=== PATIENT | female | born 1990 ===

== ENCOUNTER → 2020-06-07 10:18 | Outpatient (BNVA) | payer OTHER, SELFPAY | PROVIDERS: PCP Internal Medicine; Referring Provider Internal Medicine; Visit Provider Advanced Practice Midwife | DX: N92.6 Irregular menstruation, unspecified (principal) | CPT/HCPCS: 99213; Q3014 ==

== ENCOUNTER 2020-06-18 18:02 | Outpatient (REF) | payer OTHER, SELFPAY | END 2020-06-18 18:03 | disposition home or self-care (01) | LOC: HO.LNP 18:02 | PROVIDERS: Visit Provider Hospitalist | DX: Z20.828 Contact with and (suspected) exposure to other viral communicable diseases (principal) | CPT/HCPCS: 87635 ==

== ENCOUNTER → 2020-08-31 13:58 | Outpatient (BNVA) | payer OTHER, SELFPAY | PROVIDERS: PCP Internal Medicine; Visit Provider Obstetrics & Gynecology | DX: Z76.89 Persons encountering health services in other specified circumstances (principal) ==

== ENCOUNTER 2021-02-12 08:21 | Outpatient (REF) | payer OTHER, SELFPAY ==
[2021-02-12 11:21] LABS: MANUAL DIFF FLAG NO
[2021-02-12 11:23] LABS: Basophils Absolute Auto 0.1 X10*3/uL (0.0-0.2); Basophils Percent Auto 1.2 % (0-2); Eosinophils Percent Auto 0.7 % (0-4); Hematocrit 36.3 % (37-47); Hemoglobin 12.8 g/dl (12.0-16.0); Imm Gran Abs Auto 0.01 X10*3/uL (0.00-0.03); Imm Gran Pct Auto 0.2 % (0.0-0.4); Lymphocytes Absolute Auto 1.5 X10*3/uL (1.2-4.9); Lymphocytes Percent Auto 37.3 % (20-40); Mean Corpuscular HGB Conc 35.3 g/dl (31.0-35.0); Mean Corpuscular Hemoglobin 29.8 pg (27.0-33.0); Mean Corpuscular Volume 84.6 fL (80-98); Mean Platelet Volume 11.7 fL (9.4-12.3); Monocytes Absolute Auto 0.5 X10*3/uL (0.1-1.2); Monocytes Percent Auto 11.1 % (2-11); Neutrophils Percent Auto 49.5 % (45-73); Platelet Count 238 X10*3/uL (160-400); Red Blood Count 4.29 X10*6/uL (4.20-5.50); Red Cell Distribution Width 13.3 % (11.0-16.0); White Blood Count 4.1 X10*3/uL (4.8-10.8)
[2021-02-12 11:36] LABS: Alanine Aminotransferase 22 U/L (0-31); Albumin Level 4.3 g/dL (3.5-5.0); Alkaline Phosphatase 57 U/L (39-117); Anion Gap 13 (12-20); Aspartate Amino Transferase 23 U/L (5-31); Bilirubin Total 1.5 mg/dL (0.0-1.0); Blood Urea Nitrogen 13 mg/dL (9-16); Calcium 9.1 mg/dL (8.4-10.2); Carbon Dioxide 24 mmol/L (22-29); Chloride 103 mmol/L (96-108); Estimated Glomerular Filt Rate > 60; Glucose Fasting 72 mg/dL (60-99); Potassium 4.2 mmol/L (3.3-5.1); Sodium 136 mmol/L (135-145); Total Protein 6.8 g/dL (6.5-8.0)
[2021-02-12 11:57] LABS: TSH reflex Free T4 1.22 uIU/mL (0.32-4.0)
[2021-02-12 14:16] LABS: Monotest Negative (Negative)
[2021-02-14 17:06] LABS: Lyme Abs Screen <0.90 index
== END 2021-02-12 08:22 | disposition home or self-care (01) ==
LOC: HO.HMGCLDS 08:21
PROVIDERS: PCP Internal Medicine; Visit Provider Hospitalist
DX: Z01.84 Encounter for antibody response examination (principal); R53.83 Other fatigue
CPT/HCPCS: 36415; 80053; 84443; 85025; 86308; 86617; 86618

== ENCOUNTER 2021-02-25 11:24 | Outpatient (REF) | payer OTHER, SELFPAY ==
[2021-02-26 13:22] LABS: Rubella IgG Antibody 3.91 Index
[2021-02-28 03:34] LABS: HBS Num1 67.91 mIU/mL (0-7.99); ~Hepatitis B Surface Antibody REACTIVE (Nonreactive)
== END 2021-02-25 11:25 | disposition home or self-care (01) ==
LOC: HO.HMGCLDS 11:24
PROVIDERS: PCP Internal Medicine; Visit Provider Internal Medicine
DX: Z02.0 Encounter for examination for admission to educational institution (principal)
CPT/HCPCS: 36415; 86706; 86735; 86762; 86765; 86787

== ENCOUNTER → 2021-10-13 10:01 | Outpatient (BNVA) | payer OTHER, SELFPAY | PROVIDERS: PCP Internal Medicine; Visit Provider Advanced Practice Midwife | DX: Z31.69 Encounter for other general counseling and advice on procreation (principal) ==

== ENCOUNTER 2021-12-27 10:20 | Outpatient (REF) | payer OTHER, SELFPAY ==
[2021-12-27 11:38] LABS: MANUAL DIFF FLAG NO
[2021-12-27 11:50] LABS: Basophils Absolute Auto 0.1 X10*3/uL (0.0-0.2); Basophils Percent Auto 1.1 % (0-2); Eosinophils Absolute Auto 0.1 X10*3/uL (0.0-0.4); Eosinophils Percent Auto 1.1 % (0-4); Hematocrit 31.7 % (37.0-47.0); Hemoglobin 10.6 g/dl (12.0-16.0); Lymphocytes Absolute Auto 1.4 X10*3/uL (1.2-4.9); Lymphocytes Percent Auto 30.8 % (20-40); Mean Corpuscular HGB Conc 33.4 g/dl (31.0-35.0); Mean Corpuscular Hemoglobin 24.6 pg (27.0-33.0); Mean Corpuscular Volume 73.5 fL (80.0-98.0); Mean Platelet Volume 11.9 fL (9.4-12.3); Monocytes Absolute Auto 0.6 X10*3/uL (0.1-1.2); Neutrophils Absolute Auto 2.5 x10*3/uL (2.0-8.3); Platelet Count 287 X10*3/uL (160-400); Red Blood Count 4.31 X10*6/uL (4.20-5.50); Red Cell Distribution Width 16.3 % (11.0-16.0); White Blood Count 4.6 X10*3/uL (4.8-10.8)
[2021-12-27 12:26] LABS: Alanine Aminotransferase 16 U/L (0-31); Albumin Level 4.2 g/dL (3.5-5.0); Alkaline Phosphatase 68 U/L (39-117); Aspartate Amino Transferase 24 U/L (5-31); Bilirubin Total 0.8 mg/dL (0.0-1.0); Blood Urea Nitrogen 13 mg/dL (9-16); Calcium 9.6 mg/dL (8.4-10.2); Estimated Glomerular Filt Rate > 60; Glucose Random 70 mg/dL (60-115); Total Protein 7.1 g/dL (6.5-8.0)
[2021-12-27 12:32] LABS: TSH reflex Free T4 1.05 uIU/mL (0.32-4.0)
[2021-12-27 12:47] LABS: Anion Gap 8 (12-20); Carbon Dioxide 29 mmol/L (22-29); Chloride 106 mmol/L (96-108); Potassium 4.2 mmol/L (3.3-5.1); Sodium 139 mmol/L (135-145)
[2021-12-27 12:52] LABS: Folate 9.9 ng/mL (> or = 4.0); Vitamin B12 510 pg/mL (200-900)
[2021-12-31 13:36] LABS: Vitamin D 25-OH, D2 <4 ng/mL; Vitamin D 25-OH, D3 28 ng/mL; Vitamin D 25-OH, Total 28 ng/mL (30-100)
== END 2021-12-27 10:21 | disposition home or self-care (01) ==
LOC: HO.HMGCLDS 10:20
PROVIDERS: PCP Internal Medicine; Visit Provider Nurse Practitioner Acute Care
DX: R42 Dizziness and giddiness (principal)
CPT/HCPCS: 36415; 80053; 82306; 82607; 82746; 84443; 85025

== ENCOUNTER → 2022-01-09 15:31 | Outpatient (BNV) | payer OTHER, SELFPAY | PROVIDERS: PCP Internal Medicine; Visit Provider Internal Medicine Medical Oncology | DX: D50.9 Iron deficiency anemia, unspecified (principal); E55.9 Vitamin D deficiency, unspecified | CPT/HCPCS: 99203; 99213 ==

== ENCOUNTER 2022-04-19 08:35 | Outpatient (REF) | payer OTHER, SELFPAY ==
[2022-04-19 11:35] LABS: MANUAL DIFF FLAG NO
[2022-04-19 11:46] LABS: Basophils Percent Auto 0.8 % (0-2); Eosinophils Absolute Auto 0.1 X10*3/uL (0.0-0.4); Eosinophils Percent Auto 1.7 % (0-4); Hematocrit 36.5 % (37.0-47.0); Hemoglobin 13.1 g/dl (12.0-16.0); Imm Gran Abs Auto 0.01 X10*3/uL (0.00-0.03); Imm Gran Pct Auto 0.2 % (0.0-0.4); Lymphocytes Absolute Auto 1.4 X10*3/uL (1.2-4.9); Lymphocytes Percent Auto 29.7 % (20-40); Mean Corpuscular HGB Conc 35.9 g/dl (31.0-35.0); Mean Corpuscular Hemoglobin 30.2 pg (27.0-33.0); Mean Corpuscular Volume 84.1 fL (80.0-98.0); Mean Platelet Volume 11.5 fL (9.4-12.3); Monocytes Absolute Auto 0.6 X10*3/uL (0.1-1.2); Monocytes Percent Auto 11.7 % (2-11); Neutrophils Absolute Auto 2.6 x10*3/uL (2.0-8.3); Neutrophils Percent Auto 55.9 % (45-73); Platelet Count 229 X10*3/uL (160-400); Red Blood Count 4.34 X10*6/uL (4.20-5.50); Red Cell Distribution Width 14.2 % (11.0-16.0); White Blood Count 4.7 X10*3/uL (4.8-10.8)
[2022-04-19 12:12] LABS: TSH reflex Free T4 1.13 uIU/mL (0.32-4.0); Vitamin D 25-OH Total 30.1 ng/mL (>30)
[2022-04-19 12:15] LABS: Ferritin 26 ng/mL (10-122)
[2022-04-19 12:17] LABS: Alanine Aminotransferase 21 U/L (0-31); Albumin Level 4.1 g/dL (3.5-5.0); Alkaline Phosphatase 54 U/L (39-117); Anion Gap 11 (12-20); Aspartate Amino Transferase 19 U/L (5-31); Bilirubin Total 0.9 mg/dL (0.0-1.0); Blood Urea Nitrogen 20 mg/dL (9-16); Calcium 8.8 mg/dL (8.4-10.2); Carbon Dioxide 26 mmol/L (22-29); Chloride 105 mmol/L (96-108); Cholesterol 177 mg/dL; Estimated Glomerular Filt Rate > 60; Glucose Fasting 78 mg/dL (60-99); HDL Cholesterol 69 mg/dL; LDL Cholesterol Calculated 99 mg/dl; Potassium 3.9 mmol/L (3.3-5.1); Sodium 138 mmol/L (135-145); Total Protein 6.7 g/dL (6.5-8.0); Triglycerides 46 mg/dL
== END 2022-04-19 08:36 | disposition home or self-care (01) ==
LOC: HO.HMGCLDS 08:35
PROVIDERS: Absent Provider Internal Medicine; PCP Internal Medicine; Visit Provider Internal Medicine Medical Oncology
DX: Z00.00 Encounter for general adult medical examination without abnormal findings (principal); D50.9 Iron deficiency anemia, unspecified; Z83.49 Family history of other endocrine, nutritional and metabolic diseases
CPT/HCPCS: 36415; 80053; 80061; 82306; 82728; 84443; 85025

== ENCOUNTER 2022-05-15 14:34 | Outpatient (REF) | payer OTHER, SELFPAY ==
--- NOTE | ~2022-05-15 | US_ITS ---
EXAMINATION: US PELVIS CLINICAL INFORMATION: Abdominal pain. COMPARISON: Pelvic ultrasound dated 02/26/2020 TECHNIQUE: Ultrasound of the pelvis is performed using both transabdominal and transvaginal transducers along with Doppler. Transvaginal imaging is performed due to inadequate visualization transabdominally. FINDINGS: Uterus: The uterus is anteverted and measures 9.6 x 5.5 x 6.4 cm. A Nabothian cyst is seen within the cervix. The double wall endometrial thickness is 1.7 mm. The endometrial stripe is heterogeneous in echotexture. The uterus is smooth in contour and has normal myometrial echogenicity. FIBROIDS: There are 2 fibroids seen. 1. Location: Posterior fundus, myometrial. Size: 0.8 x 0.7 x 0.7 cm. Fibroid characteristics: Hypoechoic. 2. Location: Posterior body, myometrial. Size: 2.8 x 3.0 x 2.5 cm. Fibroid characteristics: Hypoechoic. Adnexa: Both ovaries are visualized. There is normal color flow to the adnexa. There is no ovarian torsion. There is no pelvic ascites or fluid collection. Right ovary measures 3.4 x 3.3 x 3.1 cm (volume 17.9 mL). The right ovary contains a 1.7 x 1.6 x 1.8 cm hemorrhagic cyst, with characteristic internal reticulated contents. Left ovary measures 3.1 x 2.8 x 3.0 cm (volume 13.6 mL). There is prominent left adnexal vasculature. US/US pelvic and transvaginal IMPRESSION: 1. There is borderline thickening of the endometrial stripe. Recommend Gynecology evaluation and management, consideration for follow-up pelvic ultrasound imaging and/or tissue sampling, if clinically indicated. 2. Uterine fibroids are noted, as detailed. 3. A Nabothian cyst is seen within the cervix. 4. There is prominent left adnexal vasculature, which can be assessed with pelvic congestion. 5. A 1.8 cm right ovarian hemorrhagic cyst is incidentally noted.
== END 2022-05-15 14:35 | disposition home or self-care (01) ==
LOC: HO.HMGCX 14:34
PROVIDERS: Visit Provider Family Medicine
DX: R10.9 Unspecified abdominal pain (principal)
CPT/HCPCS: 76830; 76856

== ENCOUNTER 2022-10-18 09:23 | Outpatient (REF) | payer OTHER, SELFPAY ==
[2022-10-18 10:24] LABS: MANUAL DIFF FLAG NO
[2022-10-18 10:53] LABS: Basophils Percent Auto 0.6 % (0-2); Eosinophils Percent Auto 0.6 % (0-4); Hematocrit 37.8 % (37.0-47.0); Hemoglobin 13.4 g/dl (12.0-16.0); Imm Gran Abs Auto 0.02 X10*3/uL (0.00-0.03); Imm Gran Pct Auto 0.3 % (0.0-0.4); Lymphocytes Absolute Auto 1.4 X10*3/uL (1.2-4.9); Lymphocytes Percent Auto 21.1 % (20-40); Mean Corpuscular HGB Conc 35.4 g/dl (31.0-35.0); Mean Corpuscular Hemoglobin 29.4 pg (27.0-33.0); Mean Corpuscular Volume 82.9 fL (80.0-98.0); Mean Platelet Volume 10.8 fL (9.4-12.3); Monocytes Absolute Auto 0.7 X10*3/uL (0.1-1.2); Monocytes Percent Auto 10.9 % (2-11); Neutrophils Absolute Auto 4.5 x10*3/uL (2.0-8.3); Neutrophils Percent Auto 66.5 % (45-73); Platelet Count 245 X10*3/uL (160-400); Red Blood Count 4.56 X10*6/uL (4.20-5.50); Red Cell Distribution Width 14.4 % (11.0-16.0); White Blood Count 6.7 X10*3/uL (4.8-10.8)
[2022-10-18 11:26] LABS: Alanine Aminotransferase 29 U/L (0-31); Albumin Level 4.1 g/dL (3.5-5.0); Alkaline Phosphatase 68 U/L (39-117); Anion Gap 13 (12-20); Aspartate Amino Transferase 26 U/L (5-31); Bilirubin Total 1.2 mg/dL (0.0-1.0); Blood Urea Nitrogen 21 mg/dL (9-16); Calcium 9.6 mg/dL (8.4-10.2); Carbon Dioxide 25 mmol/L (22-29); Chloride 106 mmol/L (96-108); Estimated Glomerular Filt Rate > 60; Glucose Random 78 mg/dL (60-115); Magnesium 1.9 mg/dL (1.6-2.6); Potassium 4.2 mmol/L (3.3-5.1); Sodium 140 mmol/L (135-145); Total Protein 6.6 g/dL (6.5-8.0)
[2022-10-18 11:35] LABS: Ferritin 23 ng/mL (10-122)
[2022-10-18 11:39] LABS: HIV AB/AG Nonreactive (Nonreactive); HIV Num 1 0.07 S/CO (0.00-0.99); Hepatitis B Core Antibody Nonreactive (Nonreactive); ~HepC Num1 0.11 S/CO (0.00-0.79); ~Hepatitis C Antibody Nonreactive (Nonreactive)
[2022-10-18 12:01] LABS: Folate 10.3 ng/mL (> or = 4.0); Vitamin B12 611 pg/mL (200-900); Vitamin D 25-OH Total 24.2 ng/mL (>30)
[2022-10-18 12:18] LABS: CT PCR NOT DETECTED (Not Detect.); NG PCR NOT DETECTED (Not Detect.)
== END 2022-10-18 09:24 | disposition home or self-care (01) ==
LOC: HO.LNP 09:23
PROVIDERS: Internal Medicine Medical Oncology; PCP Internal Medicine; Visit Provider Advanced Practice Midwife
DX: Z00.01 Encounter for general adult medical examination with abnormal findings (principal); Z11.3 Encounter for screening for infections with a predominantly sexual mode of transmission; Z11.4 Encounter for screening for human immunodeficiency virus [HIV]; Z20.2 Contact with and (suspected) exposure to infections with a predominantly sexual mode of transmission; D50.9 Iron deficiency anemia, unspecified; E55.9 Vitamin D deficiency, unspecified
CPT/HCPCS: 0353U; 80053; 82306; 82607; 82728; 82746; 83735; 85025; 86704; 86803; 87389

== ENCOUNTER 2023-03-28 08:55 | Outpatient (REF) | payer OTHER, SELFPAY ==
[2023-03-28 12:01] LABS: Cholesterol 187 mg/dL; HDL Cholesterol 71 mg/dL; LDL Cholesterol Calculated 103 mg/dl; Triglycerides 69 mg/dL
== END 2023-03-28 08:56 | disposition home or self-care (01) ==
LOC: HO.HMGCLDS 08:55
PROVIDERS: Absent Provider Internal Medicine Medical Oncology; PCP Internal Medicine; Visit Provider Internal Medicine
DX: Z00.01 Encounter for general adult medical examination with abnormal findings (principal); D50.9 Iron deficiency anemia, unspecified; E55.9 Vitamin D deficiency, unspecified
CPT/HCPCS: 36415; 80061

== ENCOUNTER 2023-04-04 12:57 | Outpatient (AMB) | payer OTHER, SELFPAY ==
[2023-04-04 13:01] VITALS: BP 122/70; PULSE 71; TEMP 36.3; O2SAT 100
--- NOTE | 2023-04-04 13:01 | AM.OFFWIN_ITS ---
Intake Vital Signs 04/04/23 13:01 Height 5 ft 4 in BP 122/70 Blood Pressure Location Lt brachial Position Sitting Pulse 71 Pulse Source Pulse Oximeter Temp 97.3 F Temp Source Temporal Artery Scan Pulse Oximetry (%) 100 Oxygen Delivery Method Room Air Intake Visit Reasons: EST/low iron? headaches Intake Note: Pt is here c/o on going headaches, dizziness and feeling weak. Patient Tobacco Use Status: Never used Tobacco Allergies No Known Allergies Allergy (Verified 04/04/23 13:01) Do you need a note to return to daycare/school/sports/work: No HPI HPI Comments History of Present Illness Details 1310 33-year-old female presenting for sick visit, complaining of fatigue, malaise, headache, lightheadedness, weakness, going on for the past few days worsening. Patient tells me that she has a history of iron deficiency anemia, he seek medications for however has not taken them for a while. Patient reports she is currently on her period, she typically has been having heavy periods, she feels as though her anemia as back. She tells me this is how she feels when her blood counts are low. Her headache is diffuse in nature however worse at the right side, no visual disturbances. Patient tells me she feels lightheaded, no dizziness with room spinning. No head trauma. NIH stroke scale 0 on arrival. Patient denies fevers, chills, chest pain, shortness of breath, nausea, vomiting, abdominal pain. Physical exam benign This is likely iron deficiency anemia on acute blood loss anemia secondary to heavy menses. Unlikely stroke, posterior stroke. Will rule out metabolic derangements. Unlikely orthostatic hypotension Will obtain labs, and call patient as needed. Advised her to follow-up with PCP and drink plenty of fluids. Educated patient on diagnosis and treatment plan, answered all question, patient verbalizes understanding. At this time patient will be discharged home, advised to return with new or worsening symptoms. Educated on worrisome signs and symptoms and when to return. At this time I feel comfortable discharge home. [facility] Medical History Acne vulgaris Irregular menstrual bleeding Surgical History Hx of section Family History Father Hx of diabetes mellitus Sister Diabetes mellitus Hypothyroidism Paternal Aunt Cancer Other No family history of breast cancer Social History Household Members: Children Housing: House Are you a primary urgent care technician to a significant other at home: No Do you presently have visiting nurse or other home services: No Alcohol intake: current Alcohol intake frequency: a few times a month Patient Tobacco Use Status: Never used Tobacco e-Cigarette/Vaping Use: Never Used service: No Current occupational status: employed Sexual orientation: Straight/Heterosexual Gender identity: Female Cognitive needs: No Hearing needs: No Vision needs: No Female Reproductive History Menstrual Age of Menarche: 10 Review of Systems Const Details: Constitutional : No Weight loss, No Fever, No Chills, + Fatigue, + Malaise ENT/Mouth : No sore throat, No Rhinorrhea Eyes: No Eye Pain, No Swelling, No Redness Cardiovascular : No Chest Pain, No SOB, No Dyspnea on Exertion, No Orthopnea, No Edema, No Palpitations Respiratory : No Cough, No Sputum, No Wheezing Gastrointestinal : No Nausea, No Vomiting, No Diarrhea, No Constipation, No abdominal Pain, No Hematochezia, No Melena Genitourinary : No Dysuria, No Urinary Frequency, No Hematuria, Musculoskeletal : No joint pain, No Myalgias, No Joint Swelling Skin : No Skin Lesions, No rash Neuro : No Weakness, No Numbness, + Dizziness, + Headache Psych : No Anxiety/Panic, No Depression All other systems reviewed and are negative All systems reviewed & are unremarkable except as noted in HPI and below Physical Exam Vital Signs: Last Vital Signs Temp 97.3 F 04/04/23 13:01 Pulse 71 04/04/23 13:01 BP 122/70 04/04/23 13:01 Pulse Ox 100 04/04/23 13:01 Oxygen Delivery Method Room Air 04/04/23 13:01 vss Appearance: Alert.? Oriented X3.? No acute distress.? Head: Normocephalic, atraumatic, no step-offs or deformities Eyes: Pupils equal, round and reactive to light.? Extraocular movements intact pain-free CVS: Normal heart rate and rhythm.? Pulses normal.? Respiratory: No respiratory distress.? Breath sounds normal.? Abdomen: Soft and nontender.? Skin: Skin warm and dry.? Normal skin color.? Normal skin turgor.? Extremities: No lower extremity edema.? No calf ttp. 5/5 strength to bilateral upper and lower extremities Back: No midline tenderness, no C-spine tenderness, full range of motion, no CVA tenderness bilaterally Neuro: Oriented X 3.? No motor deficit.? No sensory deficit. CN 2-12 intact . Normal [id number], vgox-kg-rdgi, steady tandem gait normal coordination. 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 NIH stroke scale 0 Assessment & Plan Assessment & Plan (1) Headache: Code(s): R51.9 - Headache, unspecified (2) Dizziness: Code(s): R42 - Dizziness and giddiness (3) Anemia: Code(s): D64.9 - Anemia, unspecified Plan Take your medications as prescribed. If you were prescribed antibiotics today, it is important that you take your medication to their entirety, do not skip any doses, do not finish them early. Follow-up with your primary care provider this week. Return to the emergency department with new or worsening symptoms. Such as fevers, chills, chest pain, shortness of breath, nausea, vomiting, dizziness, headache, vision changes, lethargy In case of emergency call 911 Orders: Orders Comprehensive Met. Panel Today D50.9 - Iron deficiency anemia, unspecified IRON PROFILE Today D50.9 - Iron deficiency anemia, unspecified Complete Blood Count Auto Diff Today N93.9 - Abnormal uterine and vaginal bleeding, unspecified HCG Quantitative Today R51.9 - Headache, unspecified Medications: New ferrous sulfate 325 mg PO Q OTHER DAY 30 tabs 0RF D50.9 - Iron deficiency anemia, unspecified Coding Level of Care Code Est Pt Level 3 (22383) Diagnoses Headache R51.9 Dizziness R42 Anemia D64.9
== END 2023-04-04 13:51 | disposition home or self-care (01) ==
PROVIDERS: PCP Internal Medicine; Visit Provider Physician Assistant
DX: R51.9 Headache, unspecified (principal); R42 Dizziness and giddiness; D64.9 Anemia, unspecified
CPT/HCPCS: 99213

== ENCOUNTER 2023-04-04 13:07 | Outpatient (REF) | payer OTHER, SELFPAY ==
[2023-04-04 16:10] LABS: MANUAL DIFF FLAG NO
[2023-04-04 16:14] LABS: Basophils Percent Auto 0.8 % (0-2); Eosinophils Absolute Auto 0.1 X10*3/uL (0.0-0.4); Eosinophils Percent Auto 1.1 % (0-4); Hematocrit 34.7 % (37.0-47.0); Hemoglobin 12.1 g/dl (12.0-16.0); Imm Gran Abs Auto 0.01 X10*3/uL (0.00-0.03); Imm Gran Pct Auto 0.2 % (0.0-0.4); Lymphocytes Absolute Auto 2.3 X10*3/uL (1.2-4.9); Lymphocytes Percent Auto 34.2 % (20-40); Mean Corpuscular HGB Conc 34.9 g/dl (31.0-35.0); Mean Corpuscular Hemoglobin 28.6 pg (27.0-33.0); Monocytes Absolute Auto 0.7 X10*3/uL (0.1-1.2); Neutrophils Absolute Auto 3.5 x10*3/uL (2.0-8.3); Neutrophils Percent Auto 52.7 % (45-73); Platelet Count 263 X10*3/uL (160-400); Red Blood Count 4.23 X10*6/uL (4.20-5.50); Red Cell Distribution Width 14.7 % (11.0-16.0); White Blood Count 6.6 X10*3/uL (4.8-10.8)
[2023-04-04 16:15] LABS: Basophils Absolute Auto 0.1 X10*3/uL (0.0-0.2)
[2023-04-04 16:39] LABS: Alanine Aminotransferase 20 U/L (0-31); Albumin Level 4.1 g/dL (3.5-5.0); Alkaline Phosphatase 61 U/L (39-117); Anion Gap 13 (12-20); Aspartate Amino Transferase 21 U/L (5-31); Bilirubin Total 0.6 mg/dL (0.0-1.0); Blood Urea Nitrogen 17 mg/dL (9-16); Calcium 9.4 mg/dL (8.4-10.2); Carbon Dioxide 23 mmol/L (22-29); Chloride 107 mmol/L (96-108); Estimated Glomerular Filt Rate > 60; Glucose Random 75 mg/dL (60-115); HCG Quantitative < 2 mIU/mL; Iron 37 mcg/dL (30-160); Percent Iron Saturation 12 % (15-50); Potassium 4.1 mmol/L (3.3-5.1); Sodium 139 mmol/L (135-145); Total Iron Binding Capacity 319 mcg/dL (228-428); Total Protein 6.9 g/dL (6.5-8.0); Unsaturated Iron Binding 282 ug/dL
== END 2023-04-04 13:08 | disposition home or self-care (01) ==
LOC: HO.HMGCLDS 13:07
PROVIDERS: PCP Internal Medicine; Visit Provider Physician Assistant
DX: N93.9 Abnormal uterine and vaginal bleeding, unspecified (principal); D50.9 Iron deficiency anemia, unspecified; R51.9 Headache, unspecified
CPT/HCPCS: 36415; 80053; 83540; 84702; 85025

== ENCOUNTER 2023-04-12 10:57 | Outpatient (AMB) | payer OTHER, SELFPAY ==
--- NOTE | 2023-04-12 11:30 | MHC.PC.OV ---
Vital Signs 04/12/23 11:31 Height 5 ft 4 in Weight 142 lb BMI 24.4 BP 112/80 Blood Pressure Location Lt brachial Position Sitting Pulse 75 Pulse Source Pulse Oximeter Pulse Oximetry (%) 98 Oxygen Delivery Method Room Air Intake Visit Reasons: Weakness and breathing problems Intake Note: Pt is here today c/o weakness and breathing problems x1wk and fatigue Allergies No Known Allergies Allergy (Verified 04/12/23 11:42) Medication List - Last Reconciled 04/12/23 by Silvia Kiran MD ferrous sulfate 325 mg PO Q OTHER DAY Tobacco use date assessed: 04/12/23 Dental Screening Dental Screen Date: 04/12/23 Did you have a dental visit in the last 12 months?: Yes Did you have a dental problem in the last 6 months where you did not have access to dental care?: No Was dental information given to patient?: Patient has dentist HPI Weakness and breathing problems HPI Details 33-year-old lady here today complaining of generalized weakness and problems with breathing especially with exertion. She had recent labs done which showed no anemia no evidence of infection, normal electrolytes, random blood sugar, vitamin B12, lipid, liver enzymes renal function are all within normal limits. She however has been noted to have low vitamin-D when it was checked in October of 2022. [facility] Medical History Acne vulgaris Irregular menstrual bleeding Surgical History Hx of section Family History Father Hx of diabetes mellitus Sister Diabetes mellitus Hypothyroidism Paternal Aunt Cancer Other No family history of breast cancer Social History Household Members: Children Housing: House Are you a primary patient care nursing assistant to a significant other at home: No Do you presently have visiting nurse or other home services: No Alcohol intake: current Alcohol intake frequency: a few times a month Patient Tobacco Use Status: Never used Tobacco e-Cigarette/Vaping Use: Never Used service: No Current occupational status: employed Sexual orientation: Straight/Heterosexual Gender identity: Female Cognitive needs: No Hearing needs: No Vision needs: No Female Reproductive History Menstrual Age of Menarche: 10 Questionnaire PHQ-9 Over the last 2 weeks, how often have you been bothered by any of the following problems? Depression Screening Interpretation: Negative Source: Developed by Drs. Tay Loyola, Vashti Mccracken, Johny Friedman and colleagues, with an educational castillo from [employer]. Thrive Questionnaire Date Thrive assessed: 09/12/22 [place]FR[place]-7 AMB Questionnaire AFRICA-7 Date [place]FRICA - 7 assessed: 09/12/22 Source: Developed by Drs. Tay Loyola, Vashti Mcrcacken, Johny Friedman and colleagues, with an educational castillo from [employer]. Review of Systems Const Denies fever(s), Denies headache(s) and Denies weakness Eyes Denies change in vision ENT Denies dizziness, Denies headache(s), Denies nasal congestion, Denies nasal discharge and Denies sore throat Card Denies chest pain, Denies lightheadedness, Denies palpitations and Denies dyspnea Resp Denies chest congestion, Denies cough, Denies dyspnea and Denies wheezing GI Denies abdominal pain, Denies change in bowel habits and Denies heartburn Denies hematuria, Denies urinary frequency, Denies dysuria and Denies urinary urgency Musc Reports no additional complaints Neuro Denies dizziness, Denies headache(s) and Denies weakness Psych Reports no additional complaints Endo Denies polydipsia, Denies polyuria and Denies palpitations Kenn/Lymph Denies easy bruising Aller/Immun Denies seasonal rhinorrhea and Denies wheezing Physical exam (Primary Care) Vital Signs: Last Vital Signs Pulse 75 04/12/23 11:31 BP 112/80 04/12/23 11:31 Pulse Ox 98 04/12/23 11:31 Oxygen Delivery Method Room Air 04/12/23 11:31 BMI result Body Mass Index 24.4 Tobacco/Smoking Status: Tobacco use Status Tobacco use date assessed 04/12/23 04/12/23 11:36 Patient Tobacco Use Status Never used Tobacco 04/12/23 11:36 e-Cigarette/Vaping Use Never Used 04/12/23 11:36 Depression Screening Interpretation: Negative Thrive Assessment: Date of Thrive Assessment Date Thrive assessed 09/12/22 04/12/23 11:36 Const General: no acute distress and alert Orientation/consciousness: patient oriented x3 HENMT Head: Yes normocephalic and Yes atraumatic Ears: hearing grossly normal bilaterally, external ears normal and TM normal on the right General nose exam: Normal external nose present Neck Other: Thyroid nonpalpable Neck: Yes full ROM, Yes no lymphadenopathy and Yes supple Resp Auscultation: clear to auscultation bilaterally Cardio Other: S1-S2 present regular rate and rhythm GI Palpation (GI): Soft to palpation, nontender and no guarding Neuro General: patient oriented x3, gait normal, tone normal, moves all extremities, Normal light touch and pain sensation and no focal motor deficits Extrem General: Yes normal to inspection, Yes full ROM, Yes no joint enlargement, Yes no clubbing, cyanosis or edema, Yes no calf tenderness and Yes normal gait Results Reviewed Results Reviewed: SPEC : [id number] RON: 04/04/23 STATUS: COMP REQ : [id number] RECD: 04/04/[address]: Sachi Patel COMP: 04/04/23 ENTERED: 04/04/[address]: Silvia Kiran MD ORDERED: CBC Auto Diff Test Result Flag Reference Site WBC 6.6 4.8-10.8 X10*3/uL RBC 4.23 4.20-5.50 X10*6/uL HGB 12.1 12.0-16.0 g/dl HCT 34.7 L 37.0-47.0 % MCV 82.0 80.0-98.0 fL MCH 28.6 27.0-33.0 pg MCHC 34.9 31.0-35.0 g/dl RDW 14.7 11.0-16.0 % PLT 263 160-400 X10*3/uL MPV 12.0 9.4-12.3 fL Neut Pct Auto 52.7 45-73 % ImGran Pct Auto 0.2 0.0-0.4 % Lymp Pct Auto 34.2 20-40 % [place] Pct Auto 11.0 2-11 % Eos Pct Auto 1.1 0-4 % Baso Pct Auto 0.8 0-2 % NRBC Pct Auto 0.0 0.0-0.2 /100WBC ANC Neut Abs # 3.5 2.0-8.3 x10*3/uL ImGran Abs Auto 0.01 0.00-0.03 X10*3/uL Lymph Abs Auto 2.3 1.2-4.9 X10*3/uL [place] Abs Auto 0.7 0.1-1.2 X10*3/uL Eos Abs Auto 0.1 0.0-0.4 X10*3/uL Baso Abs Auto 0.1 0.0-0.2 X10*3/uL NRBC Abs Auto 0.000 0.0-0.012 X10*3/uL SPEC : [id number] RON: 04/04/23 STATUS: COMP REQ : [id number] RECD: 04/04/[address]: Sachi Patel COMP: 04/04/23 ENTERED: 04/04/[address]: Silvia Kiran MD ORDERED: CMP, IRON PROF, HCG Quant Test Result Flag Reference Site Sodium 139 135-145 mmol/L Potassium 4.1 3.3-5.1 mmol/L CL 107 96-108 mmol/L CO2 23 22-29 mmol/L Gap 13 12-20 BUN 17 H 9-16 mg/dL Creat 0.77 0.5-1.4 mg/dL EGFR > 60 NOTE: For -[place] individuals, multiply the result by 1.210. Chronic Kidney Disease: Estimated GFR < 60 mL/min/1.73m2 Severe Kidney Disease: Estimated GFR < 15 mL/min/1.73m2 Glucose, Random 75 60-115 mg/dL CA 9.4 8.4-10.2 mg/dL Iron 37 30-160 mcg/dL TIBC 319 228-428 mcg/dL Saturation 12 L 15-50 % UIBC 282 ug/dL Total Bili 0.6 0.0-1.0 mg/dL AST (GOT) 21 5-31 U/L ALT (GPT) 20 0-31 U/L Protein, Total 6.9 6.5-8.0 g/dL Alb 4.1 3.5-5.0 g/dL Alk Phos 61 39-117 U/L HCG Quant < 2 mIU/mL Weeks post LMP Approximate hCG (Last Menstrual Period) Range (mIU/ml) 3 - 4 weeks 9 - 130 4 - 5 weeks 75 - 2,600 5 - 6 weeks 850 - 20,800 6 - 7 weeks 4000 - 100,200 7 - 12 weeks 11,500 - 289,000 12 - 16 weeks 18,300 - 137,000 16 - 29 weeks (2nd trimester) 1,400 - 53,000 29 - 41 weeks (3rd trimester) 940 - 60,000 The Becerra B-hCG assay is used for the early detection of ; it cannot be used to diagnose any condition unrelated to . If a B-hCG level is not supported by the clinical evidence, results should be confirmed by an alternative method (qualitative urine hCG, for example). Laboratory Tests 10/18/22 03/28/23 10:21 Unknown Triglycerides 69 Cholesterol 187 LDL Cholesterol, Calc 103 HDL Cholesterol 71 Vitamin B12 611 25-OH Vitamin D Total 24.2 Assessment and Plan Assessment & Plan (1) Malaise and fatigue: Code(s): R53.81 - Other malaise; R53.83 - Other fatigue Plan: Will check TSH and free T4, vitamin-D in Lyme titer, advised to continue by taking her iron supplements (2) Vitamin D deficiency: Code(s): E55.9 - Vitamin D deficiency, unspecified Plan: Continue taking [id number] vitamin-D 3 2000 units daily, in the meantime will check vitamin-D level Orders: Orders TSH reflex Free T4 04/12/23 R51.9 - Headache, unspecified, R53.81 - Other malaise, R53.83 - Other fatigue Vitamin D 25-OH Total 04/12/23 R51.9 - Headache, unspecified, R53.81 - Other malaise, R53.83 - Other fatigue Lyme IgG/IgM w/reflex to WB 04/12/23 R51.9 - Headache, unspecified, R53.81 - Other malaise, R53.83 - Other fatigue Coding Level of Care Code Est Pt Level 3 (03504) Diagnoses Malaise and fatigue R53.81; R53.83 Vitamin D deficiency E55.9
[2023-04-12 11:31] VITALS: BP 112/80; PULSE 75; O2SAT 98; BMI 24.4
== END 2023-04-12 13:40 | disposition home or self-care (01) ==
PROVIDERS: PCP Internal Medicine; Visit Provider Internal Medicine
DX: R53.81 Other malaise (principal); R53.83 Other fatigue; E55.9 Vitamin D deficiency, unspecified
CPT/HCPCS: 99213

== ENCOUNTER 2023-04-12 11:57 | Outpatient (REF) | payer OTHER, SELFPAY ==
[2023-04-12 16:01] LABS: MANUAL DIFF FLAG NO
[2023-04-12 16:26] LABS: Basophils Absolute Auto 0.1 X10*3/uL (0.0-0.2); Basophils Percent Auto 0.8 % (0-2); Eosinophils Percent Auto 0.6 % (0-4); Hematocrit 35.8 % (37.0-47.0); Hemoglobin 12.4 g/dl (12.0-16.0); Imm Gran Abs Auto 0.02 X10*3/uL (0.00-0.03); Imm Gran Pct Auto 0.3 % (0.0-0.4); Lymphocytes Absolute Auto 1.6 X10*3/uL (1.2-4.9); Mean Corpuscular HGB Conc 34.6 g/dl (31.0-35.0); Mean Corpuscular Hemoglobin 28.4 pg (27.0-33.0); Mean Corpuscular Volume 81.9 fL (80.0-98.0); Mean Platelet Volume 11.4 fL (9.4-12.3); Monocytes Absolute Auto 0.6 X10*3/uL (0.1-1.2); Monocytes Percent Auto 9.1 % (2-11); Neutrophils Absolute Auto 4.2 x10*3/uL (2.0-8.3); Neutrophils Percent Auto 64.2 % (45-73); Platelet Count 264 X10*3/uL (160-400); Red Blood Count 4.37 X10*6/uL (4.20-5.50); Red Cell Distribution Width 15.4 % (11.0-16.0); White Blood Count 6.6 X10*3/uL (4.8-10.8)
[2023-04-12 16:46] LABS: Alanine Aminotransferase 22 U/L (0-31); Alkaline Phosphatase 59 U/L (39-117); Anion Gap 11 (12-20); Aspartate Amino Transferase 21 U/L (5-31); Bilirubin Total 0.9 mg/dL (0.0-1.0); Blood Urea Nitrogen 17 mg/dL (9-16); Calcium 9.7 mg/dL (8.4-10.2); Carbon Dioxide 28 mmol/L (22-29); Chloride 103 mmol/L (96-108); Estimated Glomerular Filt Rate > 60; Glucose Random 76 mg/dL (60-115); Potassium 4.7 mmol/L (3.3-5.1); Sodium 137 mmol/L (135-145); Total Protein 6.9 g/dL (6.5-8.0)
[2023-04-12 17:00] LABS: Ferritin 17 ng/mL (10-122)
[2023-04-12 17:04] LABS: TSH reflex Free T4 0.99 uIU/mL (0.32-4.0); Vitamin D 25-OH Total 29.9 ng/mL (>30)
[2023-04-17 06:28] LABS: Lyme Abs Screen <0.90 index
== END 2023-04-12 11:58 | disposition home or self-care (01) ==
LOC: HO.HMGCLDS 11:57
PROVIDERS: Internal Medicine Medical Oncology; PCP Internal Medicine; Visit Provider Internal Medicine
DX: R51.9 Headache, unspecified (principal); R53.81 Other malaise; R53.83 Other fatigue; D50.9 Iron deficiency anemia, unspecified
CPT/HCPCS: 36415; 80053; 82306; 82728; 84443; 85025; 86617; 86618

== ENCOUNTER 2023-07-04 08:45 | Outpatient (AMB) | payer OTHER, SELFPAY ==
--- NOTE | 2023-07-04 08:55 | MHC.OFFWIV ---
Intake Vital Signs 07/04/23 08:56 Height 5 ft 4 in Weight 143 lb BMI 24.5 BP 130/72 Blood Pressure Location Rt brachial Position Sitting Pulse 67 Pulse Source Pulse Oximeter Temp 98.1 F Temp Source Temporal Artery Scan Pulse Oximetry (%) 98 Oxygen Delivery Method Room Air Intake Visit Reasons: EST/weakness, Low iron? right ear pain(lobby) Intake Note: pt is here for c/o weakness, possible low iron, also right ear pain Patient Tobacco Use Status: Never used Tobacco Allergies No Known Allergies Allergy (Verified 07/04/23 08:58) Medication List - Last Reconciled 07/04/23 by Imelda Carrera MD ferrous sulfate 325 mg PO Q OTHER DAY Do you need a note to return to daycare/school/sports/work: Yes HPI EST/weakness, Low iron? right ear pain(lobby) HPI Details Patient is a 33-year-old female who is working 10 hours 5 days a week and has picked up another shift for the weekend Came in today complaining of feeling tired. She says that she also go to gym 05:00 o'clock in the morning for work out. And sometimes she can not do it. I noticed that she has seen primary care in April for similar problems and had labs done Her kidney functions liver functions are fine Lyme test was negative thyroid test is normal Vitamin-D is slightly low but patient is taking supplement. She is also complaining of left ear pain on examination patient has developed infection I have sent antibiotic for that We talked about her extensive working hours, and why she is feeling tired most likely because she is over worked Patient started weeping when I said that she said that she need to work to pay her bills. She knows that she is overworked. Reassurance provided I would recommend if possible cut down on working hours and sleep more [facility] Medical History Acne vulgaris Irregular menstrual bleeding Surgical History Hx of section Family History Father Hx of diabetes mellitus Sister Diabetes mellitus Hypothyroidism Paternal Aunt Cancer Other No family history of breast cancer Social History Household Members: Children Housing: House Are you a primary urgent care physician assistant to a significant other at home: No Do you presently have visiting nurse or other home services: No Alcohol intake: current Alcohol intake frequency: a few times a month Patient Tobacco Use Status: Never used Tobacco e-Cigarette/Vaping Use: Never Used service: No Current occupational status: employed Sexual orientation: Straight/Heterosexual Gender identity: Female Cognitive needs: No Hearing needs: No Vision needs: No Female Reproductive History Menstrual Age of Menarche: 10 Review of Systems Const All systems reviewed & are unremarkable except as noted in HPI and below Physical Exam Vital Signs: Last Vital Signs Temp 98.1 F 07/04/23 08:56 Pulse 67 07/04/23 08:56 BP 130/72 07/04/23 08:56 Pulse Ox 98 07/04/23 08:56 Oxygen Delivery Method Room Air 07/04/23 08:56 BMI result Body Mass Index 24.5 Const General: no acute distress Orientation/consciousness: patient oriented x3 HEENT Other: Left ear positive erythema tympanic membrane Eyes General: appearance normal, both eyes and all related structures Resp Effort & Inspection: normal respiratory effort and able to speak in complete sentences Auscultation: clear to auscultation bilaterally Cardio Other: S1 S2 Neuro General: patient oriented x3 Psych Mental Status: mental status grossly normal Assessment & Plan Assessment & Plan (1) Otitis media, left: Code(s): H66.92 - Otitis media, unspecified, left ear Qualifiers: Otitis media type: unspecified Qualified Code(s): H66.92 - Otitis media, unspecified, left ear (2) Stressful work schedule: Code(s): Z56.3 - Stressful work schedule (3) Tired: Code(s): R53.83 - Other fatigue (4) Vitamin D deficiency: Code(s): E55.9 - Vitamin D deficiency, unspecified Plan Patient is a 33-year-old female who is working 10 hours 5 days a week and has picked up another shift for the weekend Came in today complaining of feeling tired. She says that she also go to gym 05:00 o'clock in the morning for work out. And sometimes she can not do it. I noticed that she has seen primary care in April for similar problems and had labs done Her kidney functions liver functions are fine Lyme test was negative thyroid test is normal Vitamin-D is slightly low but patient is taking supplement. She is also complaining of left ear pain on examination patient has developed infection I have sent antibiotic for that We talked about her extensive working hours, and why she is feeling tired most likely because she is over worked Patient started weeping when I said that she said that she need to work to pay her bills. She knows that she is overworked. Reassurance provided I would recommend if possible cut down on working hours and sleep more Medications: New amoxicillin 875 mg PO BID 7 days 14 tabs 0RF Coding Level of Care Code Est Pt Level 4 (59073) Diagnoses Left otitis media, unspecified otitis media type H66.92 Otitis media type: unspecified Stressful work schedule Z56.3 Tired R53.83 Vitamin D deficiency E55.9
[2023-07-04 08:56] VITALS: BP 130/72; PULSE 67; TEMP 36.7; O2SAT 98; BMI 24.5
== END 2023-07-04 09:32 | disposition home or self-care (01) ==
PROVIDERS: PCP Internal Medicine; Visit Provider Internal Medicine
DX: H66.92 Otitis media, unspecified, left ear (principal); Z56.3 Stressful work schedule; R53.83 Other fatigue; E55.9 Vitamin D deficiency, unspecified; Z83.3 Family history of diabetes mellitus
CPT/HCPCS: 99214

== ENCOUNTER 2023-07-13 10:52 | Outpatient (AMB) | payer OTHER, SELFPAY ==
--- NOTE | 2023-07-13 10:56 | A.OFFPC_ITS ---
Vital Signs 07/13/23 10:57 Height 5 ft 4 in Weight 141 lb 4 oz BMI 24.2 BP 110/82 Blood Pressure Location Rt brachial Position Sitting Pulse 83 Pulse Source Pulse Oximeter Pulse Oximetry (%) 99 Oxygen Delivery Method Room Air Intake Visit Reasons: Extremely tired and losing weight and muscles Allergies No Known Allergies Allergy (Verified 07/13/23 10:59) Medication List - Last Reconciled 07/13/23 by Imelda Carrera MD ferrous sulfate 325 mg PO Q OTHER DAY multivitamin with iron 1 tab PO DAILY omega [id number]-hzb-mko-fish oil 60-90-500 mg (Fish Oil) 1 cap PO DAILY Tobacco use date assessed: 04/12/23 HPI Extremely tired and losing weight and muscles HPI Details Patient is 33-year-old female came in today to have a follow-up on ear infection She was seen few days ago and was treated with antibiotic Patient says that her ear feels fine now She also had labs done through PCP in April I went over everything with the patient She does have a family history of diabetes but her sugar is within normal range She has slightly low vitamin-D, have sent supplement She is already taking multivitamin tablet She is sleeping fine, 8 hours a day But continued to feel tired She does admit to having stress but she says that she has always had stress. Her BMI is within normal range 24.2 We also talked about hydration and eating healthy. Other than that I do not see any other labs needed at this time. [facility] Medical History Acne vulgaris Irregular menstrual bleeding Surgical History Hx of section Family History Father Hx of diabetes mellitus Sister Diabetes mellitus Hypothyroidism Paternal Aunt Cancer Other No family history of breast cancer Social History Household Members: Children Housing: House Are you a primary hospice care transitions coordinator to a significant other at home: No Do you presently have visiting nurse or other home services: No Alcohol intake: current Alcohol intake frequency: a few times a month Patient Tobacco Use Status: Never used Tobacco e-Cigarette/Vaping Use: Never Used service: No Current occupational status: employed Sexual orientation: Straight/Heterosexual Gender identity: Female Cognitive needs: No Hearing needs: No Vision needs: No Female Reproductive History Menstrual Age of Menarche: 10 Questionnaire Thrive Questionnaire Date Thrive assessed: 09/12/22 AFRICA-7 AMB Questionnaire AFRICA-7 Date AFRICA - 7 assessed: 09/12/22 Source: Developed by Drs. Tay Loyola, Vashti Mccracken, Johny Friedman and colleagues, with an educational castillo from [employer]. Review of Systems Const Denies chills and Denies fever(s) ENT Denies epistaxis and Denies nasal discharge Card Denies chest pain Resp Denies chest congestion, Denies cough and Denies hemoptysis GI Denies diarrhea and Denies nausea Skin/Breast Denies rash Neuro Reports no additional complaints Psych Reports no additional complaints Endo Reports no additional complaints Physical exam (Primary Care) Vital Signs: Last Vital Signs Pulse 83 07/13/23 10:57 BP 110/82 07/13/23 10:57 Pulse Ox 99 07/13/23 10:57 Oxygen Delivery Method Room Air 07/13/23 10:57 BMI result Body Mass Index 24.2 Tobacco/Smoking Status: Tobacco use Status Tobacco use date assessed 04/12/23 07/13/23 11:02 Patient Tobacco Use Status Never used Tobacco 07/13/23 11:02 e-Cigarette/Vaping Use Never Used 07/13/23 11:02 Thrive Assessment: Date of Thrive Assessment Date Thrive assessed 09/12/22 07/13/23 11:02 Const General: cooperative, comfortable and no acute distress Orientation/consciousness: patient oriented x3 HENMN Head: Yes normocephalic Eyes General: appearance normal, both eyes and all related structures Neck Neck: Yes supple Resp Effort & Inspection: normal respiratory effort, no cough and no stridor Cardio Rhythm: regular rhythm Heart sounds: S1 normal heart sound present and S2 normal heart sound present Skin General skin exam: turgor normal Neuro General: patient oriented x3, tone normal and moves all extremities Extrem Right lower extremity: no edema Left lower extremity: no edema Assessment and Plan Assessment & Plan (1) Vitamin D deficiency: Code(s): E55.9 - Vitamin D deficiency, unspecified (2) Tired: Code(s): R53.83 - Other fatigue Plan Patient is 33-year-old female came in today to have a follow-up on ear infection She was seen few days ago and was treated with antibiotic Patient says that her ear feels fine now She also had labs done through PCP in April I went over everything with the patient She does have a family history of diabetes but her sugar is within normal range She has slightly low vitamin-D, have sent supplement She is already taking multivitamin tablet She is sleeping fine, 8 hours a day But continued to feel tired She does admit to having stress but she says that she has always had stress. Her BMI is within normal range 24.2 We also talked about hydration and eating healthy. Other than that I do not see any other labs needed at this time. Medications: New cholecalciferol (vitamin D3) 25 mcg PO DAILY 90 days 90 caps 0RF Coding Level of Care Code Est Pt Level 3 (45103) Diagnoses Vitamin D deficiency E55.9 Tired R53.83
[2023-07-13 10:57] VITALS: BP 110/82; PULSE 83; O2SAT 99; BMI 24.2
== END 2023-07-13 13:20 | disposition home or self-care (01) ==
PROVIDERS: PCP Internal Medicine; Visit Provider Internal Medicine
DX: E55.9 Vitamin D deficiency, unspecified (principal); R53.83 Other fatigue
CPT/HCPCS: 99213

== ENCOUNTER 2023-10-25 09:32 | Outpatient (AMB) | payer OTHER, SELFPAY ==
--- NOTE | 2023-10-25 09:36 | MHC.OFFVIS ---
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 Doing well with no concerns. She tries to eat healthy and stays active with weight lifting exercise. Regular monthly menses. Not on BC, hopes to have a future , no protection for two years. She is aware her insurance does not cover infertility benefits. She is taking daily multivitamins with folic acid. Currently is sexually active. She denies vaginal itching and irritation. STI screening offered; she declined. Denies family history of breast, ovarian or colon cancer. Last pap smear 2019, negative. [facility] Medical History Acne vulgaris Irregular menstrual bleeding Surgical History Hx of section Family History Father Hx of diabetes mellitus Sister Diabetes mellitus Hypothyroidism Paternal Aunt Cancer Other No family history of breast cancer Social History Household Members: Children Housing: House Are you a primary long term care phlebotomist to a significant other at home: No Do you presently have visiting nurse or other home services: No Alcohol intake: current Alcohol intake frequency: a few times a month Patient Tobacco Use Status: Never used Tobacco e-Cigarette/Vaping Use: Never Used service: No Current occupational status: employed Sexual orientation: Straight/Heterosexual Gender identity: Female Cognitive needs: No Hearing needs: No Vision needs: No Female Reproductive History Menstrual Age of Menarche: 10 Duration of menses: 3-5 days Date of last menstrual period: 09/30/23 control method: none Total pregnancies: 1 Full term: 1 Number of Living Children: 1 Date of last pap smear: 02/11/20 (neg pap and hpv) Review of Systems Const All systems reviewed & are unremarkable except as noted in HPI and below Reports as per HPI Eyes Reports no additional complaints ENT Reports no additional complaints Card Reports no additional complaints Resp Reports no additional complaints GI Reports as per HPI and Reports no additional complaints Reports as per HPI Musc Reports no additional complaints Skin/Breast Reports as per HPI Neuro Reports no additional complaints Psych Reports no additional complaints Endo Reports no additional complaints Kenn/Lymph Reports no additional complaints Aller/Immun Reports no additional complaints Physical Exam Const General: cooperative, healthy appearing, no acute distress, well developed and alert Orientation/consciousness: patient oriented x3 HEENT Head: Yes normal to inspection Eyes General: appearance normal, both eyes and all related structures Neck Neck: Yes normal visual inspection Thyroid: Thyroid normal Chest Chest palpation & inspection: normal inspection of the chest and other (no puckering, dimpling, peau de orange, retraction, discharge, masses) Breast/axilla inspection: normal inspection of the breasts Breast/axilla palpation: normal palpation of the breasts Resp Effort & Inspection: normal respiratory effort GI Inspection: Yes normal to inspection Palpation (GI): Soft to palpation Rectal Exam - Female: deferred General: Yes bladder normal to palpation External Female Exam: normal external appearance and normal appearance of the urethra Speculum Exam - Vagina: normal appearance of the vagina, normal palpation and normal vaginal discharge Speculum Exam - Cervix: normal appearance of the cervix and normal palpation Bimanual exam- vagina & uterus: normal bimanual exam, normal palpation, uterine size normal, bladder normal to palpation, normal palpation and non-tender Bimanual Exam- Adnexa, other: no masses Skin General skin exam: no rashes or lesions noted Rashes: no rashes Neuro General: patient oriented x3 Cognition (Neuro): normal cognition Extrem General: Yes normal to inspection Psych Attitude: cooperative Thought process: Normal thought process present Assessment & Plan Assessment & Plan (1) Encounter for well woman exam with routine gynecological exam: Code(s): Z01.419 - Encounter for gynecological examination (general) (routine) without abnormal findings Plan Discussed: Current recommendations for pap smears per ASCCP guidelines. Breast awareness and periodic breast exams. Maintain a healthy lifestyle including a well balanced diet and routine exercise. Continue multivitamins with folic acid. Consider infertility referral if she changes insurance that covers those benefits. Monitor menses if late do a home test if positive call the office for further evaluation and care. Various apps available for your phone to track her cycle and determined ovulation timing. Reviewed cycle length in the history today to educate. Patient verbalizes understanding and agrees to the plan of care. She was given opportunity to ask questions and all questions were answered to the best of my ability. RTO in one year for annual trade promotion analyst examination. This note is constructed using voice recognition software. While every effort has been made to ensure accuracy, automotive generator repairer errors may have been included. Coding Level of Care Code Est Pt Prev Care 18-39y(08701) Diagnoses Encounter for well woman exam with routine gynecological exam Z01.419
[2023-10-25 09:38] VITALS: BP 118/82; BMI 24.5
== END 2023-10-25 11:02 | disposition home or self-care (01) ==
LOC: HO.HWS 09:32
PROVIDERS: PCP Internal Medicine; Visit Provider Advanced Practice Midwife
DX: Z01.419 Encounter for gynecological examination (general) (routine) without abnormal findings (principal)
CPT/HCPCS: 99395

== ENCOUNTER → 2023-10-25 09:32 | Outpatient (BNVA) | payer OTHER, SELFPAY | PROVIDERS: PCP Internal Medicine; Visit Provider Advanced Practice Midwife | DX: Z01.419 Encounter for gynecological examination (general) (routine) without abnormal findings (principal) | CPT/HCPCS: 99395 ==

== ENCOUNTER 2024-01-08 08:16 | Outpatient (AMB) | payer OTHER, SELFPAY ==
[2024-01-08 09:03] VITALS: BP 118/80; PULSE 74; TEMP 36.4; O2SAT 98; BMI 24.5
--- NOTE | 2024-01-08 09:03 | AM.OFFWIN_ITS ---
Intake Vital Signs 3 01/08/24 09:03 Height 5 ft 4 in Weight 143 lb BMI 24.5 BP 118/80 Blood Pressure Location Lt brachial Position Sitting Pulse 74 Pulse Source Pulse Oximeter Temp 97.6 F Temp Source Temporal Artery Scan Pulse Oximetry (%) 98 Oxygen Delivery Method Room Air Intake Visit Reasons: EP pelvic pain bloating Intake Note: pt is here today for pelvic pain bloating started sunday Patient Tobacco Use Status: Never used Tobacco Allergies No Known Allergies Allergy (Verified 01/08/24 09:12) Medication List - Last Reconciled 01/08/24 by Imelda Carrera MD multivitamin with iron 1 tab PO DAILY Do you need a note to return to daycare/school/sports/work: No HPI EP pelvic pain bloating 2 HPI0 Details Patient is a 33-year-old female came in today to be evaluated for bloating sensation and discomfort lower abdomen Patient had last menstrual period 3 weeks ago, she is about her menstrual cycle later this week Complaint of no dysuria or frequency of urination test is negative No vaginal discharge UA shows slight positivity of leuk esterase Macrobid sent to be taken b.i.d. for 3 weeks May take Advil for discomfort could be because she is about to have her menstrual cycle On review system: There is no fever no chills there is no nausea no vomiting no diarrhea PFSH Medical History Acne vulgaris Irregular menstrual bleeding Surgical History Hx of section Family History Father Hx of diabetes mellitus Sister Diabetes mellitus Hypothyroidism Paternal Aunt Cancer Other No family history of breast cancer Social History Household Members: Children Housing: House Are you a primary career resource technician to a significant other at home: No Do you presently have visiting nurse or other home services: No Alcohol intake: current Alcohol intake frequency: a few times a month Patient Tobacco Use Status: Never used Tobacco e-Cigarette/Vaping Use: Never Used service: No Current occupational status: employed Sexual orientation: Straight/Heterosexual Gender identity: Female Cognitive needs: No Hearing needs: No Vision needs: No Female Reproductive History Menstrual Age of Menarche: 10 Review of Systems Const All systems reviewed & are unremarkable except as noted in HPI and below Physical Exam Vital Signs: Last Vital Signs Temp 97.6 F 01/08/24 09:03 Pulse 74 01/08/24 09:03 BP 118/80 01/08/24 09:03 Pulse Ox 98 01/08/24 09:03 Oxygen Delivery Method Room Air 01/08/24 09:03 BMI result Body Mass Index 24.5 Const General: no acute distress Orientation/consciousness: patient oriented x3 Eyes General: appearance normal, both eyes and all related structures Resp Effort & Inspection: normal respiratory effort and able to speak in complete sentences Auscultation: clear to auscultation bilaterally Cardio Other: S1 S2 GI Abdomen image: 2 1. Mild discomfort with pressure Neuro General: patient oriented x3 Psych Mental Status: mental status grossly normal Assessment & Plan Assessment & Plan (1) Pelvic pain in female: Code(s): R10.2 - Pelvic and perineal pain Plan Patient is a 33-year-old female came in today to be evaluated for bloating sensation and discomfort lower abdomen Patient had last menstrual period 3 weeks ago, she is about her menstrual cycle later this week Complaint of no dysuria or frequency of urination test is negative No vaginal discharge UA shows slight positivity of leuk esterase Macrobid sent to be taken b.i.d. for 3 weeks May take Advil for discomfort could be because she is about to have her menstrual cycle On review system: There is no fever no chills there is no nausea no vomiting no diarrhea Medications: New 2 nitrofurantoin monohyd/m-cryst 100 mg (Macrobid) must administer with a meal/food 100 mg PO Q12H 6 caps 0RF 3 days Coding Level of Care Code Est Pt Level 3 (79724) Diagnoses Pelvic pain in female R10.2
== END 2024-01-08 09:53 | disposition home or self-care (01) ==
PROVIDERS: PCP Internal Medicine; Visit Provider Internal Medicine
DX: R10.2 Pelvic and perineal pain (principal)
CPT/HCPCS: 99213

== ENCOUNTER 2024-01-14 07:52 | Outpatient (AMB) | payer OTHER, SELFPAY ==
[2024-01-14 07:58] VITALS: BP 100/62; PULSE 67; O2SAT 100; BMI 23.9
--- NOTE | 2024-01-14 07:58 | MHC.PC.OV ---
Vital Signs 01/14/24 07:58 Height 5 ft 4 in Weight 139 lb BMI 23.9 BP 100/62 Blood Pressure Location Rt brachial Position Sitting Pulse 67 Pulse Source Pulse Oximeter Pulse Oximetry (%) 100 Oxygen Delivery Method Room Air Intake Visit Reasons: c/o abd discomfort Intake Note: Pt is here today c/o abd discomfort Allergies No Known Allergies Allergy (Verified 01/14/24 08:16) Medication List - Last Reconciled 01/14/24 by Silvia Kiran MD No Known Home Meds Tobacco use date assessed: 01/14/24 Dental Screening Dental Screen Date: 01/14/24 Did you have a dental visit in the last 12 months?: No Was dental information given to patient?: Patient has dentist HPI c/o abd discomfort HPI Details 33-year-old lady here today for follow-up after recent walk-in visit, where she was seen complaining of pain in her right lower abdomen, with no accompanying fever, no urinary symptoms, no abnormal vaginal discharge.. She was empirically treated for urinary tract infection with urinalysis showing 1+ leukocytes, no nitrites, with nitrofurantoin. At present patient just has a mild discomfort in her lower abdomen but no more pain. Of note she just started her menstrual cycle 2 days ago. She had similar episode approximately 2 years ago and pelvic ultrasound showed presence of hemorrhagic cyst in her right ovary.. [facility] Medical History Acne vulgaris Irregular menstrual bleeding Surgical History Hx of section Family History Father Hx of diabetes mellitus Sister Diabetes mellitus Hypothyroidism Paternal Aunt Cancer Other No family history of breast cancer Social History Household Members: Children Housing: House Are you a primary manager managed care to a significant other at home: No Do you presently have visiting nurse or other home services: No Alcohol intake: current Alcohol intake frequency: a few times a month Patient Tobacco Use Status: Never used Tobacco e-Cigarette/Vaping Use: Never Used service: No Current occupational status: employed Sexual orientation: Straight/Heterosexual Gender identity: Female Cognitive needs: No Hearing needs: No Vision needs: No Female Reproductive History Menstrual Age of Menarche: 10 Questionnaire PHQ-9 Over the last 2 weeks, how often have you been bothered by any of the following problems? 1. Little interest or pleasure in doing things: not at all 2. Feeling down, depressed, or hopeless: not at all 3. Trouble falling or staying asleep, or sleeping too much: not at all 4. Feeling tired or having little energy: several days 5. Poor appetite or overeating: several days 6. Feeling bad about yourself - or that you are a failure or have let yourself or your family down: not at all 7. Trouble concentrating on things, such as reading the newspaper or watching television: several days 8. Moving or speaking so slowly that other people could have noticed. Or the opposite - being so fidgety or restless that you have been moving around a lot more than usual: not at all 9. Thoughts that you would be better off or of hurting yourself in some way: not at all Total score: 3 Depression Screening Interpretation: Negative Depression Screening Done: Yes 90156 - PHQ-9 Billing: Yes Source: Developed by Drs. Tay Loyola, Vashti Mccracken, Johny Friedman and colleagues, with an educational castillo from [employer]). Thrive Questionnaire Date Thrive assessed: 01/14/24 I am a: Patient What is your living situation today?: I have a steady place to live Within the past 12 months, did the food you bought not last and you didn't have the money to get more?: Never true Within the past 12 months, did you worry whether your food would run out before you got money to buy more?: Never true Do you have trouble paying for medicines?: No Do you have trouble getting transportation to medical appointments?: No Do you have trouble paying your heating and electricity bill?: No Do you have trouble taking care of your child, family member or friend?: No Do you have trouble with day-to-day activities such as bathing, preparing meals, shopping, managing finances, etc.?: No Are you currently unemployed and looking for a job?: No Are you interested in more education?: Yes THRIVE Score: 0 AUDIT C Alcohol Use Questionnaire (AUDIT-C) 1. How often do you have a drink containing alcohol?: Never Total Score: 0 AFRICA-7 AMB Questionnaire AFRICA-7 Date AFRICA - 7 assessed: 01/14/24 Feeling nervous, anxious, or on edge: 0 = Not at all Not being able to stop or control worryin = Not at all Worrying too much about different things: 0 = Not at all Trouble relaxin = Several days Being so restless that it is hard to sit still: 0 = Not at all Becoming easily annoyed or irritable: 1 = Several days Feeling afraid as if something awful might happen: 0 = Not at all Total AFRICA-7 score (0-4 normal; 5-9 mild; 10-14 moderate; 15-21 severe): 2 Source: Developed by Drs. Tay Loyola, Vashti Mccracken, Johny Friedman and colleagues, with an educational castillo from [employer] (formerly [employer]). AFRICA-7 Assessment Billing AFRICA-7 Assessment Tool: AFRICA-7 Assessment 39018 Review of Systems Const Denies fever(s) ENT Reports no additional complaints Card Reports no additional complaints Resp Reports no additional complaints GI Denies melena, Denies bloating, Denies hematochezia, Denies change in bowel habits and Denies heartburn Reports no additional complaints Musc Reports no additional complaints Skin/Breast Denies lesions and Denies rash Kenn/Lymph Reports no additional complaints Physical exam (Primary Care) Vital Signs: Last Vital Signs Pulse 67 01/14/24 07:58 BP 100/62 01/14/24 07:58 Pulse Ox 100 01/14/24 07:58 Oxygen Delivery Method Room Air 01/14/24 07:58 BMI result Body Mass Index 23.9 Tobacco/Smoking Status: Tobacco use Status Tobacco use date assessed 01/14/24 01/14/24 08:03 Patient Tobacco Use Status Never used Tobacco 01/14/24 08:00 e-Cigarette/Vaping Use Never Used 01/14/24 08:00 PHQ-9: PHQ-9 Score PHQ-9: Total score 4 01/14/24 08:33 Depression Screening Interpretation: Negative Thrive Assessment: Date of Thrive Assessment Date Thrive assessed 01/14/24 01/14/24 08:18 Const General: comfortable and no acute distress Orientation/consciousness: patient oriented x3 Neck Neck: Yes supple Resp Effort & Inspection: normal respiratory effort and no cough Cardio Rhythm: regular rhythm Heart sounds: S1 normal heart sound present and S2 normal heart sound present GI Inspection: Yes normal to inspection Palpation (GI): Soft to palpation, nontender, no guarding and no masses Percussion: Yes normal to percussion Auscultation: normal bowel sounds General: Yes no CVA tenderness Back/Spine/Pelvis Back: no CVA tenderness Skin General skin exam: no rashes or lesions noted Neuro General: patient oriented x3, tone normal and moves all extremities Extrem Right lower extremity: no edema Left lower extremity: no edema Assessment and Plan Assessment & Plan (1) Pelvic pain in female: Code(s): R10.2 - Pelvic and perineal pain Plan: Right-sided pelvic pain has resolved after her menstrual cycles started, likely a functional cyst. Has had a hemorrhagic right ovarian cyst seen on a pelvic ultrasound done in 2021. Advised to discuss this with her OBGYN, may take Midol [id number] as needed for pain if it recurs Coding Level of Care Code Est Pt Level 4 (62369) Diagnoses Pelvic pain in female R10.2 Additional Codes AFRICA-7 Assessment Billing - AFRICA-7 Assessment Tool: AFRICA-7 Assessment 80998 ([id number])
== END 2024-01-14 08:33 | disposition home or self-care (01) ==
PROVIDERS: PCP Internal Medicine; Visit Provider Internal Medicine
DX: R10.2 Pelvic and perineal pain (principal)
CPT/HCPCS: 99214

== ENCOUNTER 2024-01-15 15:28 | Outpatient (AMB) | payer OTHER, SELFPAY ==
--- NOTE | 2024-01-15 15:32 | A.OFFVIS_ITS ---
Vital Signs 01/15/24 15:33 Height 5 ft 4 in Weight 139 lb BMI 23.9 BP 106/66 Intake Visit Reasons: pelvic pain Intake Note: Pain on lower right side of abdomen and was having painful menses Hand Sample Maker Required: No Information Interpreted: non-clinical & clinical Lap Winding Machine Operator: Lap Winding Machine Operator Present (Michelle) Allergies No Known Allergies Allergy (Verified 01/15/24 15:43) Is last menstrual period known: Yes Last menstrual period: 01/14/24 Post menopausal: No HPI Comments Details: Patient is here today with complaints of right lower quadrant pain deep towards the right side of her scar and pelvic region. She denies any urinary symptoms, reports she had a UTI treated at [facility] last Sunday completed her antibiotics and feels much better from those symptoms. She reports some nausea, and decreased appetite, no constipation or diarrhea. Some discomfort with intimacy reported, no abnormal discharge or odor. Lower pelvic discomfort worsened with exercise. Not currently on control is open to a future . She is taking an oxag-aof-zxheudz multivitamin for folic acid benefits. [facility] Medical History Acne vulgaris Irregular menstrual bleeding Surgical History Hx of section Family History Father Hx of diabetes mellitus Sister Diabetes mellitus Hypothyroidism Paternal Aunt Cancer Other No family history of breast cancer Social History Household Members: Children Housing: House Are you a primary memory care program director to a significant other at home: No Do you presently have visiting nurse or other home services: No Alcohol intake: current Alcohol intake frequency: a few times a month Patient Tobacco Use Status: Never used Tobacco e-Cigarette/Vaping Use: Never Used service: No Current occupational status: employed Sexual orientation: Straight/Heterosexual Gender identity: Female Cognitive needs: No Hearing needs: No Vision needs: No Female Reproductive History Menstrual Age of Menarche: 10 Duration of menses: 3-5 days Date of last menstrual period: 01/14/24 control method: none Total pregnancies: 1 Full term: 1 Number of Living Children: 1 Review of Systems Const All systems reviewed & are unremarkable except as noted in HPI and below Physical Exam Vital Signs: Last Vital Signs BP 106/66 01/15/24 15:33 BMI result Body Mass Index 23.9 Const General: cooperative, healthy appearing and no acute distress Orientation/consciousness: patient oriented x3 GI Inspection: Yes normal to inspection and Yes scar Palpation (GI): Soft to palpation and Other GI palpation findings present (Nontender) Rectal Exam - Female: visual inspection normal General: Yes bladder normal to palpation External Female Exam: normal appearance of the urethra Speculum Exam - Vagina: normal appearance of the vagina, normal palpation, normal vaginal discharge and Vaginal cyst present Speculum Exam - Cervix: normal appearance of the cervix and normal palpation Bimanual exam- vagina & uterus: normal bimanual exam, normal palpation, uterine size normal, bladder normal to palpation, normal palpation, uterine shape normal and non-tender Bimanual Exam- Adnexa, other: normal adnexae Neuro General: patient oriented x3 Results AMB Test Urine AMB Test Urine Negative Last Edit by FLORENCE Gil on 01/15/24 16:11 AMB Urinalysis, Automated UA Leukoctes 0 Krystina/uL Last Edit by Michelle Bunn Anastacia on 01/15/24 16:11 UA Nitrite Negative Last Edit by Michelle Bunn Anastacia on 01/15/24 16:11 UA Urobilinogen 0 mg/dL Last Edit by Michelle Bunn Anastacia on 01/15/24 16:11 UA Protein 0.5 mg/dL Last Edit by Michelle Bunn Anastacia on 01/15/24 16:11 UA pH 6.5 Last Edit by Michelle Bunn [facility] on 01/15/24 16:11 UA Blood 3 Jj/uL Last Edit by Michelle Bunn Anastacia on 01/15/24 16:11 UA Specific [place] 1.015 Last Edit by Michelle Bunn [facility] on 01/15/24 16: 11 UA Ketone Negative Last Edit by Michelle Bunn Anastacia on 01/15/24 16:11 UA Bilirubin 0 mg/dL Last Edit by Michelle Bunn [facility] on 01/15/24 16:11 UA Glucose 0 mg/dL Last Edit by FLORENCE Gil on 01/15/24 16:11 Assessment & Plan Assessment & Plan (1) Pelvic pain in female: Code(s): R10.2 - Pelvic and perineal pain Category: Medical Plan: Discussed plan of care to include an ultrasound, GC chlamydia, BV panel, urine dip, urine test. UPT is negative. Await plan of care for results follow up in person for ultrasound findings. Advised pelvic rest, increase fluid intake, [id number] self-help medication for mild pain including either Tylenol or ibuprofen with food as directed, heating pad if needed for comfort measures, warnings when to go to the emergency room for increased pain. Continue with multivitamins. Return to the office for ultrasound findings in-person. Call sooner if there is any changes or concerns. All of her questions and concerns were addressed to the best of my ability and shared decision making. She is agreeable to the plan of care. This note is constructed using voice recognition software. While every effort has been made to ensure accuracy, nuclear licensing engineer errors may have been included. Orders: Orders AMB HCG Urine Test Today R10.2 - Pelvic and perineal pain AMB Urinalysis Automated Today R10.2 - Pelvic and perineal pain US pelvic and transvaginal Today R10.2 - Pelvic and perineal pain Bacterial Vaginosis Panel Today R10.2 - Pelvic and perineal pain CT NG by PCR Today R10.2 - Pelvic and perineal pain Coding Level of Care Code Est Pt Level 4 (46520) Diagnoses Pelvic pain in female R10.2
[2024-01-15 15:33] VITALS: BP 106/66; BMI 23.9
== END 2024-01-15 16:15 | disposition home or self-care (01) ==
PROVIDERS: PCP Internal Medicine; Visit Provider Advanced Practice Midwife
DX: R10.2 Pelvic and perineal pain (principal)
CPT/HCPCS: 99214

== ENCOUNTER 2024-01-15 15:28 | Outpatient (REF) | payer OTHER, SELFPAY ==
[2024-01-16 02:02] LABS: CT PCR NOT DETECTED (Not Detect.); NG PCR NOT DETECTED (Not Detect.)
[2024-01-16 11:32] LABS: Bacterial Vaginosis PCR NEGATIVE (Negative); Candida Group PCR DETECTED (Not Detect); Candida glab krusei PCR NOT DETECTED (Not Detect); Trichomonas vaginalis PCR NOT DETECTED (Not Detect)
== END 2024-01-15 15:29 | disposition home or self-care (01) ==
LOC: HO.LNP 15:28
PROVIDERS: PCP Internal Medicine; Visit Provider Advanced Practice Midwife
DX: R10.2 Pelvic and perineal pain (principal)
CPT/HCPCS: 0352U; 0353U; 81003; 81025; 99212

== ENCOUNTER 2024-02-01 10:57 | Outpatient (REF) | payer OTHER, SELFPAY ==
--- NOTE | ~2024-02-01 | US_ITS ---
EXAMINATION: US PELVIS CLINICAL INFORMATION: Pelvic and perineal pain LMP 01/16/2024 COMPARISON: Pelvic ultrasound 05/15/2022 TECHNIQUE: Ultrasound of the pelvis is performed using both transabdominal and transvaginal transducers along with Doppler. Transvaginal imaging is performed due to inadequate visualization transabdominally. FINDINGS: Uterus: The uterus is anteverted and measures 8.9 x 5.5 x 7.8 cm. There are 2 uterine fibroids: Posterior fundus, intramural measures 0.9 x 0.9 x 1.1 cm, previously measured 0.8 x 0.7 x 0.7 cm. Posterior body, intramural measures 4.7 x 3.9 x 4.0 cm, previously measured 2.8 x 3.0 x 2.5 cm. The endometrium is thickened measuring 2.0 cm.? 2.5 x 0.8 x 0.9 cm endometrial polyp. The uterus is smooth in contour and has normal myometrial echogenicity. No visible fibroid. Adnexa: Both ovaries are visualized. There is normal color flow to the adnexa. There is no ovarian torsion. There is no pelvic ascites or fluid collection. Right ovary measures 3.2 x 2.2 x 1.8 cm. Volume 6.8 mL. Left ovary measures 4.0 x 2.3 x 3.9 cm. Volume 19.0 mL. 2.6 x 2.4 x 2.4 cm complex follicle/cyst is seen within the left ovary. US/US pelvic and transvaginal IMPRESSION: 1. 2 uterine fibroids. 2. Thickened endometrium with ?2.5 cm endometrial polyp. 3. 2.6 cm complex follicle/cyst in the left ovary. Follow-up in 4-6 weeks after the patient's next menses could be obtained.
== END 2024-02-01 10:58 | disposition home or self-care (01) ==
LOC: HO.US 10:57
PROVIDERS: PCP Internal Medicine; Visit Provider Advanced Practice Midwife
DX: R10.2 Pelvic and perineal pain (principal)
CPT/HCPCS: 76830; 76856

== ENCOUNTER 2024-02-05 12:56 | Outpatient (AMB) | payer OTHER, SELFPAY ==
[2024-02-05 13:04] VITALS: BP 110/66; PULSE 76; O2SAT 99; BMI 24.5
--- NOTE | 2024-02-05 13:04 | A.OFFPC_ITS ---
Vital Signs 02/05/24 13:04 Height 5 ft 4 in Weight 143 lb BMI 24.5 BP 110/66 Blood Pressure Location Lt brachial Position Sitting Pulse 76 Pulse Source Pulse Oximeter Pulse Oximetry (%) 99 Oxygen Delivery Method Room Air Intake Visit Reasons: Change to PE Per AE Intake Note: pt here for annual PE. Last Pap 10/2023 Allergies No Known Allergies Allergy (Verified 02/06/24 03:19) Medication List - Last Reconciled 02/05/24 by Silvia Kiran MD ferrous sulfate 325 mg PO DAILY Tobacco use date assessed: 02/05/24 Dental Screening Dental Screen Date: 02/05/24 Did you have a dental visit in the last 12 months?: No Did you have a dental problem in the last 6 months where you did not have access to dental care?: No Was dental information given to patient?: Patient has dentist HPI Change to PE Per AE HPI Details 33-year-old lady with history of anemia, just restarted taking her iron pills again she has been complaining of intermittent episodes of fatigue over the last several weeks, here today for physical exam. Currently sees her own OBGYN for her routine Pap and pelvic exam. Was recently seen at the ED and was told that she had endometriosis. Her menstrual cycle however is regular every 21-25 days, lasting 5 days with the 1st 3 days with heavy bleeding. Has history of vitamin-D deficiency on last visit, but not taking any vitamin-D supplements at present time [facility] Medical History (Updated 02/06/24 @ 03:21 by Silvia Kiran MD) History of anemia History of vitamin D deficiency Acne vulgaris Surgical History Hx of section Family History Father Hx of diabetes mellitus Sister Diabetes mellitus Hypothyroidism Paternal Aunt Cancer Other No family history of breast cancer Social History Household Members: Children Housing: House Are you a primary manager care management to a significant other at home: No Do you presently have visiting nurse or other home services: No Alcohol intake: current Alcohol intake frequency: a few times a month Patient Tobacco Use Status: Never used Tobacco e-Cigarette/Vaping Use: Never Used service: No Current occupational status: employed Sexual orientation: Straight/Heterosexual Gender identity: Female Cognitive needs: No Hearing needs: No Vision needs: No Female Reproductive History Menstrual Age of Menarche: 10 Questionnaire Thrive Questionnaire Date Thrive assessed: 01/14/24 [place]-7 AMB Questionnaire [place]-7 Date [place] - 7 assessed: 01/14/24 Source: Developed by Drs. Tay Loyola, Vashti Mccracken, Johny Friedman and colleagues, with an educational castillo from [employer]. Review of Systems Const Denies fever(s) Eyes Reports blurry vision (Needs reading glasses) ENT Reports no additional complaints Card Reports no additional complaints Resp Reports no additional complaints GI Denies melena, Denies bloating, Denies hematochezia, Denies change in bowel habits and Denies heartburn Reports no additional complaints Musc Reports no additional complaints Skin/Breast Denies lesions and Denies rash Neuro Reports no additional complaints Psych Reports no additional complaints Endo Reports no additional complaints Kenn/Lymph Reports no additional complaints Aller/Immun Reports no additional complaints Physical exam (Primary Care) Vital Signs: Last Vital Signs Pulse 76 02/05/24 13:04 BP 110/66 02/05/24 13:04 Pulse Ox 99 02/05/24 13:04 Oxygen Delivery Method Room Air 02/05/24 13:04 BMI result Body Mass Index 24.5 Tobacco/Smoking Status: Tobacco use Status Tobacco use date assessed 02/05/24 02/05/24 13:37 Patient Tobacco Use Status Never used Tobacco 02/05/24 13:04 e-Cigarette/Vaping Use Never Used 02/05/24 13:04 Thrive Assessment: Date of Thrive Assessment Date Thrive assessed 01/14/24 02/05/24 13:04 Const General: comfortable and no acute distress Orientation/consciousness: patient oriented x3 HENMT Head: Yes normocephalic Ears: external ears normal, TM's normal bilaterally and EAC's normal General nose exam: Normal external nose present Face and sinus: Yes face symmetric Mouth: Normal oral and palatal mucosa present, oropharynx normal and moist mucous membranes Eyes General: appearance normal, both eyes and all related structures Neck Neck: Yes supple Resp Effort & Inspection: normal respiratory effort and no cough Cardio Rhythm: regular rhythm Heart sounds: S1 normal heart sound present and S2 normal heart sound present GI Inspection: Yes normal to inspection Palpation (GI): Soft to palpation, nontender, no guarding and no masses Percussion: Yes normal to percussion Auscultation: normal bowel sounds General: Yes no CVA tenderness Back/Spine/Pelvis Back: no CVA tenderness Skin General skin exam: no rashes or lesions noted Neuro General: patient oriented x3, tone normal and moves all extremities Extrem Right lower extremity: no edema Left lower extremity: no edema Psych Appearance: grossly normal and well kempt Mental Status: mental status grossly normal Speech and movement: Normal speech and movement present Affect: normal affect Assessment and Plan Assessment & Plan (1) Annual visit for general adult medical examination with abnormal findings: Code(s): Z00.01 - Encounter for general adult medical examination with abnormal findings Plan: Will check appropriate labs. Recommended dental visit every 6 months and regular eye exams, at least every 2 years. Take adequate calcium in diet and vitamin-D 3 at 2000 IU per cap once a day, in addition to weight-bearing exer cises to help maintain good muscle tone and weight control. Instructed to do self-breast exam, and recommended to get yearly mammogram, starting at age 40. Up-to-date with her flu shot and Tdap, declines getting COVID vaccines. Goes to OBGYN at [place] for her routine Pap and pelvic exam. (2) Fatigue: Code(s): R53.83 - Other fatigue Qualifiers: Fatigue type: unspecified Qualified Code(s): R53.83 - Other fatigue Plan: Will check CBC, vitamin-D and iron profile Orders: Orders Complete Blood Count Auto Diff 02/05/24 Z00.01 - Encounter for general adult medical examination with abnormal findings, Z13.1 - Encounter for screening for diabetes mellitus, Z13.220 - Encounter for screening for lipoid disorders, Z86.2 - Personal history of diseases of the blood and blood-forming organs and certain disorders involving the immune mechanism, Z86.39 - Personal history of other endocrine, nutritional and metabolic disease Lipid Panel 02/05/24 Z00.01 - Encounter for general adult medical examination with abnormal findings, Z13.1 - Encounter for screening for diabetes mellitus, Z13.220 - Encounter for screening for lipoid disorders, Z86.2 - Personal history of diseases of the blood and blood-forming organs and certain disorders involvin g the immune mechanism, Z86.39 - Personal history of other endocrine, nutritional and metabolic disease Vitamin D 25-OH Total 02/05/24 Z00.01 - Encounter for general adult medical examination with abnormal findings, Z13.1 - Encounter for screening for diabetes mellitus, Z13.220 - Encounter for screening for lipoid disorders, Z86.2 - Personal history of diseases of the blood and blood-forming organs and certain disorders involving the immune mechanism, Z86.39 - Personal history of other endocrine, nutritional and metabolic disease IRON PROFILE 02/05/24 R53.83 - Other fatigue, Z00.01 - Encounter for general adult medical examination with abnormal findings, Z86.2 - Personal history of diseases of the blood and blood-forming organs and certain disorders involving the immune mechanism Glucose Fasting 02/05/24 Z00.01 - Encounter for general adult medical examination with abnormal findings, Z13.1 - Encounter for screening for diabetes mellitus, Z13.220 - Encounter for screening for lipoid disorders, Z86.2 - Personal history of diseases of the blood and blood-forming organs and certain disorders involving the immune mechanism, Z86.39 - Personal history of other endocrine, nutritional and metabolic disease Coding Level of Care Code Est Pt Prev Care 18-39y(81216) Diagnoses Annual visit for general adult medical examination with abnormal findings Z00. Fatigue, unspecified type R53.83 Fatigue type: unspecified
== END 2024-02-05 14:06 | disposition home or self-care (01) ==
PROVIDERS: PCP Internal Medicine; Visit Provider Internal Medicine
DX: Z00.00 Encounter for general adult medical examination without abnormal findings (principal); R53.83 Other fatigue
CPT/HCPCS: 99395

== ENCOUNTER 2024-02-29 10:56 | Outpatient (AMB) | payer OTHER, SELFPAY ==
[2024-02-29 10:57] VITALS: BP 116/74; BMI 24.5
--- NOTE | 2024-02-29 10:57 | A.OFFVIS_ITS ---
Vital Signs 02/29/24 10:57 Height 5 ft 4 in Weight 143 lb BMI 24.5 BP 116/74 Blood Pressure Location Lt brachial Position Sitting Intake Visit Reasons: US follow up in person Health Actuary: Health Actuary Present Allergies No Known Allergies Allergy (Verified 02/29/24 10:59) Is last menstrual period known: Yes Last menstrual period: 02/08/24 HPI Comments Details: Patient is here today for a follow up on her ultrasound the pelvis prior visit she had concerns for right lower quadrant pain deep towards the right side of her scar and pelvic region, somewhat improved, increases with weight lifting, exercise. She reports the pain on and off over the last 2 years. History of heavy menstrual bleeding, currently planning a future . Due for her menses next week. Hand delivered copies of her CT and pelvic ultrasound from [facility] in a January 18 when she was seen for her pelvic pain. [facility] Medical History History of anemia History of vitamin D deficiency Acne vulgaris Surgical History Hx of section Family History Father Hx of diabetes mellitus Sister Diabetes mellitus Hypothyroidism Paternal Aunt Cancer Other No family history of breast cancer Social History Household Members: Children Housing: House Are you a primary acute care occupational therapist to a significant other at home: No Do you presently have visiting nurse or other home services: No Alcohol intake: current Alcohol intake frequency: a few times a month Patient Tobacco Use Status: Never used Tobacco e-Cigarette/Vaping Use: Never Used service: No Current occupational status: employed Sexual orientation: Straight/Heterosexual Gender identity: Female Cognitive needs: No Hearing needs: No Vision needs: No Female Reproductive History Menstrual Age of Menarche: 10 Duration of menses: 3-5 days Date of last menstrual period: 02/08/24 control method: none Review of Systems Const All systems reviewed & are unremarkable except as noted in HPI and below Endo Reports no additional complaints Physical Exam Vital Signs: Last Vital Signs BP 116/74 02/29/24 10:57 BMI result Body Mass Index 24.5 Const General: cooperative, healthy appearing and no acute distress Psych Appearance: well kempt Attitude: cooperative Thought process: Normal thought process present Results Reviewed Results Reviewed: [address] [address] Ultrasound Report Signed Patient: Darya Romero MR#: [id number] : 1990 Acct:[id number] Age/Sex: 33 / F ADM Date: 02/01/24 Loc: HO.US Attending Dr: Floridalma Castro CNM Ordering Physician: Floridalma Castro CNM Date of Service: 02/01/24 Procedure(s): US pelvic and transvaginal Accession Number(s): [id number] cc: Silvia Kiran MD; Floridalma Castro CNM~ EXAMINATION: US PELVIS CLINICAL INFORMATION: Pelvic and perineal pain LMP 01/16/2024 COMPARISON: Pelvic ultrasound 05/15/2022 TECHNIQUE: Ultrasound of the pelvis is performed using both transabdominal and transvaginal transducers along with Doppler. Transvaginal imaging is performed due to inadequate visualization transabdominally. FINDINGS: Uterus: The uterus is anteverted and measures 8.9 x 5.5 x 7.8 cm. There are 2 uterine fibroids: Posterior fundus, intramural measures 0.9 x 0.9 x 1.1 cm, previously measured 0.8 x 0.7 x 0.7 cm. Posterior body, intramural measures 4.7 x 3.9 x 4.0 cm, previously measured 2.8 x 3.0 x 2.5 cm. The endometrium is thickened measuring 2.0 cm.? 2.5 x 0.8 x 0.9 cm endometrial polyp. The uterus is smooth in contour and has normal myometrial echogenicity. No visible fibroid. Adnexa: Both ovaries are visualized. There is normal color flow to the adnexa. There is no ovarian torsion. There is no pelvic ascites or fluid collection. Right ovary measures 3.2 x 2.2 x 1.8 cm. Volume 6.8 mL. Left ovary measures 4.0 x 2.3 x 3.9 cm. Volume 19.0 mL. 2.6 x 2.4 x 2.4 cm complex follicle/cyst is seen within the left ovary. US/US pelvic and transvaginal IMPRESSION: 1. 2 uterine fibroids. 2. Thickened endometrium with ?2.5 cm endometrial polyp. 3. 2.6 cm complex follicle/cyst in the left ovary. Follow-up in 4-6 weeks after the patient's next menses could be obtained. Dictated By: Elizabeth Vasquez MD Signed By: <Electronically signed by Elizabeth Vasquez MD in OV> 02/19/24 1033 DD/ 1123 TD/TT: Professor Of English: Assessment & Plan Assessment & Plan (1) Fibroid: Code(s): D21.9 - Benign neoplasm of connective and other soft tissue, unspecified Category: Medical (2) Encounter to discuss test results: Code(s): Z71.2 - Person consulting for explanation of examination or test findings (3) Endometrial polyp: Code(s): N84.0 - Polyp of corpus uteri (4) Heavy menstrual bleeding: Code(s): N92.0 - Excessive and frequent menstruation with regular cycle Qualifiers: Menorrhagia type: with regular cycle Qualified Code(s): N92.0 - Excessive and frequent menstruation with regular cycle (5) Complex ovarian cyst: Code(s): N83.299 - Other ovarian cyst, unspecified side Plan Discussed: Ultrasound findings with complex ovarian cyst, endometrial polyp, fibroids. Counseled re: Leiomyoma: common pelvic neoplasm. Differential diagnosis-may include leiomyosarcoma which is a rare uterine sarcoma 3-7/100,000, difficult to distinguish from fibroids on ultrasound from uterine sarcoma's. Unlikely any single test will have a highly positive predictive value. Hysterectomy is not recommended for sole purpose of excluding malignant neoplasm. Report any changes w/ heavy or prolonged bleeding. Pelvic pressure, bloating, or pain. Consult for surgical exploration verses expectant management offered. Patient prefers no surgery due to planning a future . Reviewed Interventional Radiology and medical management options. Expectant management follow up in 6 months, then yearly for stability. Referral to MD if indicated for level of care. Counseled regarding findings of: Complex ovarian cyst, which is often benign, and most resolve on their own overtime. Some develop into premalignant or malignant tumors. Further monitoring and evaluation is recommended with US, possible CT, or MRI study. If persists, or is indicated (Ca-125, Carbohydrate Antigen 19-9, & Carcinoembryonic Antigen) labs will be ordered and referral to [facility] or general gynecology for MD care if indicated for possible surgical consult. Follow up in person for test results. Repeat ultrasound planned in 2 weeks, follow up in office to review results report any increase in pain, or if any significant pain return to the emergency room for immediate evaluation. Endometrial polyp-advised removal, consult to be made with Dr. Galvan regarding hysteroscopy. Follow up in office to discuss ultrasound findings for the complex ovarian cyst. No unprotected intimacy advised, use of condoms. All of her questions and concerns were addressed to the best of my ability and shared decision making. She is agreeable to the plan of care. This note is constructed using voice recognition software. While every effort has been made to ensure accuracy, program clinician errors may have been included. Medications: New PNV,calcium 55-rots-lvzzt acid 27 mg iron- 1 mg ( Vitamins Plus Low Iron) 1 tab PO DAILY 90 tabs 4RF Coding Level of Care Code Est Pt Level 3 (17441) Diagnoses Fibroid D21.9 Encounter to discuss test results Z71.2 Endometrial polyp N84.0 Menorrhagia with regular cycle N92.0 Menorrhagia type: with regular cycle Complex ovarian cyst N83.299
== END 2024-02-29 11:24 | disposition home or self-care (01) ==
LOC: HO.HWS 10:56
PROVIDERS: PCP Internal Medicine; Visit Provider Advanced Practice Midwife
DX: D21.9 Benign neoplasm of connective and other soft tissue, unspecified (principal); Z71.2 Person consulting for explanation of examination or test findings; N84.0 Polyp of corpus uteri; N92.0 Excessive and frequent menstruation with regular cycle; N83.299 Other ovarian cyst, unspecified side
CPT/HCPCS: 99213

== ENCOUNTER → 2024-02-29 10:56 | Outpatient (BNVA) | payer OTHER, SELFPAY | PROVIDERS: PCP Internal Medicine; Visit Provider Advanced Practice Midwife | DX: Z71.2 Person consulting for explanation of examination or test findings (principal); D21.9 Benign neoplasm of connective and other soft tissue, unspecified; N84.0 Polyp of corpus uteri; N92.0 Excessive and frequent menstruation with regular cycle; N83.299 Other ovarian cyst, unspecified side | CPT/HCPCS: 99212 ==

== ENCOUNTER 2024-03-04 14:55 | Outpatient (REF) | payer OTHER, SELFPAY ==
[2024-03-04 16:54] LABS: Hemoglobin 13.6 g/dl (12.0-16.0); Mean Corpuscular HGB Conc 36.8 g/dl (31.0-35.0); Mean Corpuscular Hemoglobin 31.3 pg (27.0-33.0); Mean Corpuscular Volume 85.1 fL (80.0-98.0); Mean Platelet Volume 10.7 fL (9.4-12.3); Platelet Count 235 X10*3/uL (160-400); Red Blood Count 4.35 X10*6/uL (4.20-5.50); White Blood Count 7.4 X10*3/uL (4.8-10.8)
[2024-03-04 17:40] LABS: HCG Quantitative < 2 mIU/mL
[2024-03-05 06:53] LABS: Prolactin 13.5 ng/mL
== END 2024-03-04 14:56 | disposition home or self-care (01) ==
LOC: HO.LAB 14:55
PROVIDERS: PCP Internal Medicine; Visit Provider Obstetrics & Gynecology
DX: N93.9 Abnormal uterine and vaginal bleeding, unspecified (principal); D21.9 Benign neoplasm of connective and other soft tissue, unspecified; N83.299 Other ovarian cyst, unspecified side; N84.0 Polyp of corpus uteri
CPT/HCPCS: 36415; 84146; 84443; 84702; 85027; 99212

== ENCOUNTER 2024-03-04 14:55 | Outpatient (AMB) | payer OTHER, SELFPAY ==
[2024-03-04 14:56] VITALS: BMI 24.2
--- NOTE | 2024-03-04 14:56 | MHC.OFFVIS ---
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 Pelvic ultrasound done on 02/01/24 showed the following: Uterus: The uterus is anteverted and measures 8.9 x 5.5 x 7.8 cm. There are 2 uterine fibroids: Posterior fundus, intramural measures 0.9 x 0.9 x 1.1 cm, previously measured 0.8 x 0.7 x 0.7 cm. Posterior body, intramural measures 4.7 x 3.9 x 4.0 cm, previously measured 2.8 x 3.0 x 2.5 cm. The endometrium is thickened measuring 2.0 cm.? 2.5 x 0.8 x 0.9 cm endometrial polyp. The uterus is smooth in contour and has normal myometrial echogenicity. No visible fibroid. Adnexa: Both ovaries are visualized. There is normal color flow to the adnexa. There is no ovarian torsion. There is no pelvic ascites or fluid collection. Right ovary measures 3.2 x 2.2 x 1.8 cm. Volume 6.8 mL. Left ovary measures 4.0 x 2.3 x 3.9 cm. Volume 19.0 mL. 2.6 x 2.4 x 2.4 cm complex follicle/cyst is seen within the left ovary. Last co testing was in 02/20 was negative 01/24 GC/CT were negative PFSH Medical History History of anemia History of vitamin D deficiency Acne vulgaris Surgical History Hx of section Family History Father Hx of diabetes mellitus Sister Diabetes mellitus Hypothyroidism Paternal Aunt Cancer Other No family history of breast cancer Social History Household Members: Children Housing: House Are you a primary field care coordinator to a significant other at home: No Do you presently have visiting nurse or other home services: No Alcohol intake: current Alcohol intake frequency: a few times a month Patient Tobacco Use Status: Never used Tobacco e-Cigarette/Vaping Use: Never Used service: No Current occupational status: employed Sexual orientation: Straight/Heterosexual Gender identity: Female Cognitive needs: No Hearing needs: No Vision needs: No Female Reproductive History Menstrual Age of Menarche: 10 Date of last menstrual period: 07/01/20 Total pregnancies: 2 Full term: 2 Review of Systems Card Reports as per HPI and Reports no additional complaints Resp Reports as per HPI and Reports no additional complaints GI Reports as per HPI and Reports no additional complaints Reports as per HPI Physical Exam Vital Signs: BMI result Body Mass Index 24.2 Const General: cooperative, healthy appearing and comfortable Resp Effort & Inspection: normal respiratory effort Auscultation: clear to auscultation bilaterally Percussion: percussion normal Cardio Palpation: normal PMI Rate: regular rate Rhythm: regular rhythm Heart sounds: no murmurs and no rubs Peripheral pulses: Peripheral pulses 2+ throughout GI Inspection: Yes normal to inspection Palpation (GI): Soft to palpation, nontender, no guarding, not rigid and No hepatosplenomegaly present Percussion: Yes normal to percussion Auscultation: normal bowel sounds Rectal Exam - Female: deferred Assessment & Plan Assessment & Plan (1) Abnormal uterine bleeding (AUB): Comment: Endometrial polyp Code(s): N93.9 - Abnormal uterine and vaginal bleeding, unspecified Category: Medical Plan: Co testing up-to-date, GC and chlamydia recently done and negative, CBC, TSH, prolactin, HCG, ordered. Discussed with the patient the different causes of abnormal bleeding including thyroid disorders, uterine and ovarian pathology, endometrial hyperplasia, carcinoma and other potential causes. Discussed with the patient the work up including CBC (to r/o anemia), TSH, prolactin, pelvic Ultrasound, endometrial sampling to r/o endometrial pathology. All questions answered and the patient verbalized understanding. (2) Fibroid: Code(s): D21.9 - Benign neoplasm of connective and other soft tissue, unspecified Category: Medical Plan: Discussed with the patient the findings on pelvic ultrasound & the risk of myosarcoma; discussed with the patient the options of treatment including expectant management versus hysterectomy; the pros and cons, risks benefits of each approach were discussed with the patient including the fact that in cases of myosarcoma, surgical treatment can lead to early diagnosis and positively affects the prognosis; after further discussion, the patient decided to proceed with expectant management. Will repeat pelvic ultrasound periodically. Instructions given to patient to call in case any of the following occurs: pressure symptoms, abnormal uterine bleeding, pelvic pain; and to schedule a future office follow-up appointment for reassessment and to order a repeat ultrasound . All questions answered, the patient verbalized understanding and agreed with the plan . (3) Complex ovarian cyst: Code(s): N83.299 - Other ovarian cyst, unspecified side Category: Medical Plan: Discussed with the patient the complex ovarian cyst by ultrasound. Discussed with the patient the Ultrasound findings, the main limitation of transvaginal ultrasonography alone as a diagnostic tool to distinguish benign from malignant masses relates to its lack of specificity and low positive predictive value for cancer. The differential diagnosis discussed with the patient includes the following but not limited to: benign and malignant gynecological and non-gynecological causes. Since ultrasound was done on 02/01/2024 Will repeat US check the results and treat accordingly. Instructions given the patient to schedule a 2 week ultrasound saurabh in follow-up appointment within 2 weeks. All questions were answered & the patient verbalized understanding and agreed with the plan. (4) Endometrial polyp: Code(s): N84.0 - Polyp of corpus uteri Category: Medical Plan: Discussed with the patient the finding on ultrasound showing endometrial polyp, recommended hysteroscopy D&C possible polypectomy/myomectomy. Discussed with the patient the procedure , all benefits and risks including but not limited to inability to complete the procedure , insufficient endometrial tissue for a complete evaluation of the endometrial cavity , bleeding, infection, possible need for blood transfusion with all its risk ( HIV,syphilis, Hepatitis, anaphylaxis shock, others..), injury to bladder, rectum, possible need for laparoscopy/laparotomy or hysterectomy. The patient verbalized understanding and signed the consent. Instructions given the patient to stay NPO after midnight the day prior to the procedure and to take only the specific medication (s) discussed the morning of the surgical procedure and to schedule a 2 week postoperative appointment Orders: Orders HCG Quantitative Today N93.9 - Abnormal uterine and vaginal bleeding, unspecified TSH reflex Free T4 Today N93.9 - Abnormal uterine and vaginal bleeding, unspecified US pelvic and transvaginal Today N83.299 - Other ovarian cyst, unspecified side, N93.9 - Abnormal uterine and vaginal bleeding, unspecified Complete Blood Count no Diff Today N93.9 - Abnormal uterine and vaginal bleeding, unspecified Prolactin Today N93.9 - Abnormal uterine and vaginal bleeding, unspecified Coding Level of Care Code Est Pt Level 3 (12248) Diagnoses Abnormal uterine bleeding (AUB) N93.9 Fibroid D21.9 Complex ovarian cyst N83.299 Endometrial polyp N84.0
== END 2024-03-04 15:45 | disposition home or self-care (01) ==
LOC: HO.HWS 14:55
PROVIDERS: PCP Internal Medicine; Visit Provider Obstetrics & Gynecology
DX: N93.9 Abnormal uterine and vaginal bleeding, unspecified (principal); D21.9 Benign neoplasm of connective and other soft tissue, unspecified; N83.299 Other ovarian cyst, unspecified side; N84.0 Polyp of corpus uteri
CPT/HCPCS: 99213

== ENCOUNTER 2024-03-13 11:27 | Outpatient (REF) | payer OTHER, SELFPAY ==
--- NOTE | ~2024-03-13 | US_ITS ---
EXAMINATION: US PELVIS CLINICAL INFORMATION: Abnormal uterine and vaginal bleeding. COMPARISON: Pelvic ultrasound 02/01/2024: Thickened endometrium with ?2.5 cm endometrial polyp. 2.6 cm complex follicle/cyst in the left ovary. Follow up in 4-6 weeks after the patient's next menses could be obtained. TECHNIQUE: Ultrasound of the pelvis is performed using only transabdominal transducers along with Doppler. Patient with the endovaginal exam. FINDINGS: Uterus: The uterus is anteflexed and measures 9.1 x 5.2 x 5.4 cm for a volume of 146 mL cm. The double wall endometrial thickness is 6 mm. Some fluid is seen in the endometrial canal. A polypoid mass is present in the endometrial canal surrounded by fluid measuring 8 x 5 x 5 mm. The uterus is smooth in contour and has normal myometrial echogenicity. A mid uterine body posterior fibroid is noted measuring 3.0 x 3.8 x 3.3 cm (previously 4.7 x 3.9 x 4.0 cm), with another smaller fibroid at the fundus measuring 1.0 x 1.1 x 1.1 cm (previously 0.9 x 0.9 x 1.1 cm). Adnexa: Both ovaries are visualized. There is normal color flow to the adnexa. There is no ovarian torsion. There is no pelvic ascites or fluid collection. Right ovary measures 4.7 x 1.9 x 2.0 cm for a volume of 9.2 mL, which includes a cyst with a single thin septation measuring 1.4 x 1.2 x 1.5 cm (previously 1.7 x 1.6 x 1.8 cm), with an additional new simple cyst measuring 1.2 x 1.3 x 1.0 cm. Left ovary measures 3.9 x 2.6 x 1.4 cm for a volume of 7.4 mL, which includes a 2.1 x 1.3 x 2.2 cm simple cyst. US/US pelvic complete IMPRESSION: 1. Uterine fibroids. 2. Endometrial polyp. Further evaluation is recommended with possibly hysterosonography or tissue sampling. 3. Bilateral ovarian cysts. No follow up is needed.
== END 2024-03-13 11:28 | disposition home or self-care (01) ==
LOC: HO.US 11:27
PROVIDERS: PCP Internal Medicine; Visit Provider Obstetrics & Gynecology
DX: N93.9 Abnormal uterine and vaginal bleeding, unspecified (principal); N83.299 Other ovarian cyst, unspecified side
CPT/HCPCS: 76856

== ENCOUNTER 2024-03-21 07:07 | Day surgery (SDC) | payer OTHER, SELFPAY ==
[2024-03-18 09:31] VITALS: BMI 24.2
[2024-03-21 07:49] LABS: UPreg QC Valid YES; Urine Pregnancy NEGATIVE (NEGATIVE)
[2024-03-21 07:53] VITALS: BP 127/75; PULSE 60; RESP 16; TEMP 36.7; O2SAT 99; BMI 22.8
[2024-03-21] MEDS: Lactated Ringers 1,000 ML 100 ML IVCONT (08:02)
--- NOTE | 2024-03-21 08:10 | MHC.SHP ---
Pre-Procedural Eval Section A - 24 Hr Update-Section A only Date of Service: 03/21/24 The patient is an INPATIENT: No Changes since office visit: No Cold of Flu in the past 2 weeks, No New Medical Problems, No Changes in Medication and No Patient answered all questions The patient has been examined within 24 hours of the surgical procedure. The History & Physical has been completed within 30 days and I have reviewed it.: Yes Section B - Complete if H&P > 30 days Chief Complaint: Abnormal uterine and vaginal bleeding, unspecified Allergies: Allergies Allergy/AdvReac Type Severity Reaction Status Date / Time No Known Allergies Allergy Verified 03/21/24 07:40 Plan Diagnosis/Plan: Unchanged I have reviewed the history and physical and performed a pertinent physical examination on my patient. No changes have occurred unless specified. Time Spent With Patient Time: Total time managing care of this patient today ____ minutes.
--- NOTE | 2024-03-21 08:45 | HO.ANESPROP2 ---
Documented by User: Emilie Kidd NP 03/19/24 12:23 HPI - Anesthesia Eval Consult details Narrative: 34yo F for D&C Hysteroscopy,possible myomectomy,possible polypectomy PMFSH Active Problems Active Problems: All Active Problems Endometrial polyp (Acute) Complex ovarian cyst (Acute) Abnormal uterine bleeding (AUB) (Acute) Fibroid (Acute) History of anemia (Acute) Pelvic pain in female (Acute) Vitamin D deficiency (Acute) Family history of diabetes mellitus in first degree relative (Acute) Family history of thyroid disorder (Acute) History of vitamin D deficiency (Acute) Acne vulgaris (Acute) Past Medical History Medical History (Updated 03/18/24 @ 09:31 by Veronica Ulloa RN) Vitamin D deficiency Anemia Acne vulgaris Family History Family History Father Hx of diabetes mellitus Sister Diabetes mellitus Hypothyroidism Paternal Aunt Cancer Other No family history of breast cancer Surgical History Surgical History Hx of section Social History Social History Household Members: Children Housing: House Are you a primary child caregiver private home to a significant other at home: No Do you presently have visiting nurse or other home services: No Alcohol intake: current Alcohol intake frequency: holidays/special occasions only Patient Tobacco Use Status: Never used Tobacco e-Cigarette/Vaping Use: Never Used Use of substances other than those prescribed or required for medical reasons: No Are you DNR?: No Advance Directives Information Provided: Yes Advance Directives on File: No service: No Current occupational status: employed Sexual orientation: Straight/Heterosexual Gender identity: Female Cognitive needs: No Hearing needs: No Vision needs: No Meds Allergies Allergy/AdvReac Type Severity Reaction Status Date / Time No Known Allergies Allergy Verified 03/21/24 07:40 Home Medications ?Medication ?Instructions ?Recorded ?Confirmed ?Last Taken ?Type ferrous sulfate 325 mg (65 mg 325 mg PO DAILY 02/05/24 03/21/24 03/07/24 History iron) tablet creatine monohydrate DAILY muscle pain 03/21/24 Unknown History Exam Height,Weight and Vital Signs: Height 5 ft 4 in Weight 63.957 kg Assessment and Plan Assessment Anesthesia Assessment: Chart Reviewed Documented by User: Sunshine Booker, 03/21/24 08:46 PMFSH Past Medical History Medical History (Updated 03/18/24 @ 09:31 by Veronica Ulloa RN) Vitamin D deficiency Anemia Acne vulgaris Family History Family History Father Hx of diabetes mellitus Sister Diabetes mellitus Hypothyroidism Paternal Aunt Cancer Other No family history of breast cancer Family history of problems with anesthesia: No Surgical History Surgical History Hx of section History of Problems with Anesthesia: No Social History Social History Household Members: Children Housing: House Are you a primary child caregiver private home to a significant other at home: No Do you presently have visiting nurse or other home services: No Alcohol intake: current Alcohol intake frequency: holidays/special occasions only Patient Tobacco Use Status: Never used Tobacco e-Cigarette/Vaping Use: Never Used Use of substances other than those prescribed or required for medical reasons: No Are you DNR?: No Advance Directives Information Provided: Yes Advance Directives on File: No service: No Current occupational status: employed Sexual orientation: Straight/Heterosexual Gender identity: Female Cognitive needs: No Hearing needs: No Vision needs: No Meds Allergies Allergy/AdvReac Type Severity Reaction Status Date / Time No Known Allergies Allergy Verified 03/21/24 07:40 Home Medications ?Medication ?Instructions ?Recorded ?Confirmed ?Last Taken ?Type ferrous sulfate 325 mg (65 mg 325 mg PO DAILY 02/05/24 03/21/24 03/07/24 History iron) tablet creatine monohydrate DAILY muscle pain 03/21/24 Unknown History Exam Exam Date and Time: March 21, 2024 0844 Height,Weight and Vital Signs: Height 5 ft 4 in Weight 63.957 kg Vital Signs Temperature 98.1 F 03/21/24 07:53 Pulse Rate 60 03/21/24 07:53 Respiratory Rate 16 03/21/24 07:53 Blood Pressure 127/75 03/21/24 07:53 Pulse Oximetry 99 03/21/24 07:53 Oxygen Delivery Method Room Air 03/21/24 07:53 Temperature 98.1 F 03/21/24 07:53 Pulse Rate 60 03/21/24 07:53 Respiratory Rate 16 03/21/24 07:53 Blood Pressure 127/75 03/21/24 07:53 Pulse Oximetry 99 03/21/24 07:53 Oxygen Delivery Method Room Air 03/21/24 07:53 Airway Mallampati Class: I TM Dist: >3cm Neck ROM: Full Loose/Missing/Broken Teeth: No (patient denies any loose or broken teeth) Heart: S1S2 Lungs: CTAB Assessment and Plan Assessment Anesthesia Assessment: Anesthesia Plan Discussed and Chart Reviewed Final Anesthetic Review Family History of Problems with Anesthesia: No History of Problems with Anesthesia: No NPO: Yes ASA Class: II Final Preanesthetic Review: No Changes in Pt Med Stat, Meds/Allgs Chart Reviewed, Consent Obtained/Reviewed and Anes Risks/Benef Reviewed Patient Risk: Low Procedure Risk: Low Anesthetic Plan Anesthetic Plan: GA and Agree w/ Assess. and Plan Disposition: Standard PACU
--- NOTE | 2024-03-21 09:19 | P.BOP_ITS ---
Brief Operative Note Date of Service: 03/21/24 Pre-op diagnosis: AUB, endometrial polyp by ultrasound Post-op diagnosis: same (Normal endometrial cavity) Procedure: Hysteroscopy D&C Surgeon: Neftaly Galvan MD Anesthesia: GLMA Was an Maintenance Service Supervisor used for this Procedure?: No Estimated blood loss (mL): 0 Pathology: other (Endometrial Scrapping) Condition: stable Disposition: PACU
--- NOTE | 2024-03-21 09:23 | W.PM.OPN ---
Operative Note Operative Note Date of Service: 03/21/24 Narrative: Preop Diagnosis: Abnormal uterine bleeding, endometrial polyp by ultrasound Operation: Diagnostic Hysteroscopy, Dilataion & Curettage Post Op Diagnosis: Normal endometrial and endocervical cavity, no evidence of pathology QBL: Minimal Anesthesia: GLMA Surgeon: Neftaly Galvan MD [employer]: None Complication: None Pathology: Endometrial Scrapings Procedure: The patient was put in the dorsal lithotomy position, scrubbed, and draped in the usual manner. A sterile speculum was inserted in the patient's vagina. The anterior lip of the cervix was grasped with a single tooth tenaculum. The cervix was dilated up to 5 mm, then the scope was inserted in the patient's uterus. Inspection revealed normal endocervical & endometrial cavity with no evidence of pathology. The scope was taken out of the uterine cavity , then sharp curetting was carried on with no complications. At the end of the procedure, all instruments were taken out of the patient uterine and vaginal cavity. The single tooth tenaculum was removed and homeostasis was assured using pressure. The patient tolerated the procedure well and was transferred to the PACU in a stable condition.
[2024-03-21 09:26] VITALS: BP 117/50; PULSE 70; RESP 16; TEMP 36.6; O2SAT 97
[2024-03-21 09:31] VITALS: BP 102/50; PULSE 60; RESP 14; O2SAT 100
[2024-03-21 09:36] VITALS: BP 107/56; PULSE 65; RESP 16; O2SAT 100
[2024-03-21 09:41] VITALS: BP 120/77; PULSE 64; RESP 16; O2SAT 97
[2024-03-21 09:56] VITALS: BP 126/71; PULSE 56; RESP 16; TEMP 36.6; O2SAT 100
== END 2024-03-21 10:16 | disposition home or self-care (01) ==
PROVIDERS: Nurse Practitioner; PCP Internal Medicine; Visit Provider Obstetrics & Gynecology
PROC: 0UDB8ZZ Extraction of Endometrium, Via Natural or Artificial Opening Endoscopic (ICD-10-PCS; CPT 58558; principal; 2024-03-21 09:00)
DX: N93.9 Abnormal uterine and vaginal bleeding, unspecified (principal); N83.299 Other ovarian cyst, unspecified side; D64.9 Anemia, unspecified; E55.9 Vitamin D deficiency, unspecified; L70.0 Acne vulgaris
CPT/HCPCS: 58558; 81025; 88305; J1100; J1885; J2250; J2405; J2704; J3010

== ENCOUNTER → 2024-03-21 07:07 | Outpatient (BNV) | payer OTHER, SELFPAY | PROVIDERS: PCP Internal Medicine; Visit Provider Obstetrics & Gynecology | DX: N84.0 Polyp of corpus uteri (principal); N93.9 Abnormal uterine and vaginal bleeding, unspecified | CPT/HCPCS: 58558 ==

== ENCOUNTER 2024-04-02 15:37 | Outpatient (AMB) | payer OTHER, SELFPAY ==
[2024-04-02 15:40] VITALS: BMI 24.5
--- NOTE | 2024-04-02 15:40 | A.OFFVIS_ITS ---
Vital Signs 04/02/24 15:40 Height 5 ft 4 in Weight 143 lb BMI 24.5 Intake Visit Reasons: post op Allergies No Known Allergies Allergy (Verified 03/21/24 07:40) HPI Comments Details: The patient is presenting post hysteroscopy D&C with no complaints, no vaginal bleeding, no abdominal/pelvic pain, no feverishness chills or abdominal pain, good bowel movement. The pathology showed the following: - Secretory endometrium; negative for atypia or hyperplasia. - Small fragment of benign adipose tissue. See comment The following workup was done.: H&H= 13.6/ TSH, prolactin hCG, GC and chlamydia were negative. Co testing was done in 02/20 was negative. Pelvic ultrasound showed the following: Uterus: The uterus is anteflexed and measures 9.1 x 5.2 x 5.4 cm for a volume of 146 mL cm. The double wall endometrial thickness is 6 mm. Some fluid is seen in the endometrial canal. A polypoid mass is present in the endometrial canal surrounded by fluid measuring 8 x 5 x 5 mm. The uterus is smooth in contour and has normal myometrial echogenicity. A mid uterine body posterior fibroid is noted measuring 3.0 x 3.8 x 3.3 cm (previously 4.7 x 3.9 x 4.0 cm), with another smaller fibroid at the fundus measuring 1.0 x 1.1 x 1.1 cm (previously 0.9 x 0.9 x 1.1 cm). Adnexa: Both ovaries are visualized. There is normal color flow to the adnexa. There is no ovarian torsion. There is no pelvic ascites or fluid collection. Right ovary measures 4.7 x 1.9 x 2.0 cm for a volume of 9.2 mL, which includes a cyst with a single thin septation measuring 1.4 x 1.2 x 1.5 cm (previously 1.7 x 1.6 x 1.8 cm), with an additional new simple cyst measuring 1.2 x 1.3 x 1.0 cm. Left ovary measures 3.9 x 2.6 x 1.4 cm for a volume of 7.4 mL, which includes a 2.1 x 1.3 x 2.2 cm simple cyst. Pelvic ultrasound in 01/24 showed . 2.6 cm complex follicle/cyst in the left ovary [facility] Medical History Vitamin D deficiency Anemia Acne vulgaris Surgical History Hx of section Family History Father Hx of diabetes mellitus Sister Diabetes mellitus Hypothyroidism Paternal Aunt Cancer Other No family history of breast cancer Social History Household Members: Children Housing: House Are you a primary direct care supervisor to a significant other at home: No Do you presently have visiting nurse or other home services: No Alcohol intake: current Alcohol intake frequency: holidays/special occasions only Patient Tobacco Use Status: Never used Tobacco e-Cigarette/Vaping Use: Never Used service: No Current occupational status: employed Sexual orientation: Straight/Heterosexual Gender identity: Female Cognitive needs: No Hearing needs: No Vision needs: No Female Reproductive History Menstrual Age of Menarche: 10 Review of Systems Const All systems reviewed & are unremarkable except as noted in HPI and below Reports as per HPI and Reports no additional complaints GI Reports no additional complaints Reports no additional complaints Physical Exam Vital Signs: BMI result Body Mass Index 24.5 Assessment & Plan Assessment & Plan (1) Abnormal uterine bleeding (AUB): Code(s): N93.9 - Abnormal uterine and vaginal bleeding, unspecified Category: Medical Plan: Discussed with the patient the results of the work up done including the results the pathology showing adipose tissue suspecting uterine perforation, in addition discussed with the patient the options of treatment including Lysteda, BCP's, Mirena IUD, (the patient is not interested in the method of control). All pros, cons, risks and benefits if each option was discussed with the patient and the patient decided to do nothing at this point and will call in case abnormal bleeding recurs. Signs and symptoms of bowel injury were discussed with the patient, Instructions given the patient to call in case abdominal pain, fever, nausea or vomiting, abdominal distention. All questions answered the patient verbalized understanding. (2) Complex ovarian cyst: Code(s): N83.299 - Other ovarian cyst, unspecified side Category: Medical Plan: Discussed with the patient the complex ovarian cyst by ultrasound. Discussed with the patient the Ultrasound findings, the main limitation of transvaginal ultrasonography alone as a diagnostic tool to distinguish benign from malignant masses relates to its lack of specificity and low positive predictive value for cancer. CA 125 ordered. The differential diagnosis discussed with the patient includes the following but not limited to: benign and malignant gynecological and non-gynecological causes. Discussed with the patient options of treatment , in case CA 125 is not elevated, including laparoscopy ovarian cystectomy/oophorectomy vs. expectant management with repeat US in repeating pelvic US in 12 weeks from previous US. If the ovarian complex cyst is persistent larger and / or more complex looking, or higher CA 125 will refer to gynecologic Oncology. All pros, cons, risks and benefits of each approach were discussed with the patient including but not limited to a delay in the diagnosis and treatment of ovarian cancer affecting the prognosis; The patient decided to go ahead with expectant management. Instructions given the patient to schedule a 3 months follow-up ultrasound appointment. All questions were answered & the patient verbalized understanding and agreed with the plan. (3) Fibroid: Code(s): D21.9 - Benign neoplasm of connective and other soft tissue, unspecified Category: Medical Plan: Discussed with the patient the findings on pelvic ultrasound & the risk of myosarcoma; discussed with the patient the options of treatment including expectant management versus hysterectomy; the pros and cons, risks benefits of each approach were discussed with the patient including the fact that in cases of myosarcoma, surgical treatment can lead to early diagnosis and positively affects the prognosis; after further discussion, the patient decided to proceed with expectant management. Will repeat pelvic ultrasound periodically. Instructions given to patient to call in case any of the following occurs: pressure symptoms, abnormal uterine bleeding, pelvic pain; and to schedule a future office follow-up appointment for reassessment and to order a repeat ultrasound . All questions answered, the patient verbalized understanding and agreed with the plan . Orders: Orders CA-125 Today N83.299 - Other ovarian cyst, unspecified side US pelvic and transvaginal 3 Months D21.9 - Benign neoplasm of connective and other soft tissue, unspecified, N83.299 - Other ovarian cyst, unspecified side Coding Level of Care Code Est Pt Level 3 (78206) Diagnoses Abnormal uterine bleeding (AUB) N93.9 Complex ovarian cyst N83.299 Fibroid D21.9
== END 2024-04-02 16:06 | disposition home or self-care (01) ==
LOC: HO.HWS 15:37
PROVIDERS: PCP Internal Medicine; Visit Provider Obstetrics & Gynecology
DX: N93.9 Abnormal uterine and vaginal bleeding, unspecified (principal); N83.299 Other ovarian cyst, unspecified side; D21.9 Benign neoplasm of connective and other soft tissue, unspecified
CPT/HCPCS: 99213

== ENCOUNTER → 2024-04-02 15:37 | Outpatient (BNVA) | payer OTHER, SELFPAY | PROVIDERS: PCP Internal Medicine; Visit Provider Obstetrics & Gynecology | DX: N93.9 Abnormal uterine and vaginal bleeding, unspecified (principal); N83.291 Other ovarian cyst, right side; D21.9 Benign neoplasm of connective and other soft tissue, unspecified | CPT/HCPCS: 99212 ==

== ENCOUNTER 2024-04-04 10:45 | Outpatient (REF) | payer OTHER, SELFPAY ==
[2024-04-05 08:29] LABS: CA-125 47 U/mL (<35)
== END 2024-04-04 10:46 | disposition home or self-care (01) ==
LOC: HO.LAB 10:45
PROVIDERS: PCP Internal Medicine; Visit Provider Obstetrics & Gynecology
DX: N83.299 Other ovarian cyst, unspecified side (principal)
CPT/HCPCS: 36415; 86304

== ENCOUNTER 2024-04-08 10:18 | Outpatient (AMB) | payer OTHER, SELFPAY ==
--- NOTE | 2024-04-08 10:19 | A.OFFVIS_ITS ---
Intake Visit Reasons: US follow up Allergies No Known Allergies Allergy (Verified 03/21/24 07:40) HPI Comments Details: The patient is scheduled tele health visit to discuss the results of her pelvic ultrasound which showed the following: Uterus: The uterus is anteflexed and measures 9.1 x 5.2 x 5.4 cm for a volume of 146 mL cm. The double wall endometrial thickness is 6 mm. Some fluid is seen in the endometrial canal. A polypoid mass is present in the endometrial canal surrounded by fluid measuring 8 x 5 x 5 mm. The uterus is smooth in contour and has normal myometrial echogenicity. A mid uterine body posterior fibroid is noted measuring 3.0 x 3.8 x 3.3 cm (previously 4.7 x 3.9 x 4.0 cm), with another smaller fibroid at the fundus measuring 1.0 x 1.1 x 1.1 cm (previously 0.9 x 0.9 x 1.1 cm). Adnexa: Both ovaries are visualized. There is normal color flow to the adnexa. There is no ovarian torsion. There is no pelvic ascites or fluid collection. Right ovary measures 4.7 x 1.9 x 2.0 cm for a volume of 9.2 mL, which includes a cyst with a single thin septation measuring 1.4 x 1.2 x 1.5 cm (previously 1.7 x 1.6 x 1.8 cm), with an additional new simple cyst measuring 1.2 x 1.3 x 1.0 cm. Left ovary measures 3.9 x 2.6 x 1.4 cm for a volume of 7.4 mL, which includes a 2.1 x 1.3 x 2.2 cm simple cyst. CA 125 =47 [facility] Medical History Vitamin D deficiency Anemia Acne vulgaris Surgical History Hx of section Family History Father Hx of diabetes mellitus Sister Diabetes mellitus Hypothyroidism Paternal Aunt Cancer Other No family history of breast cancer Social History Household Members: Children Housing: House Are you a primary resident caregiver to a significant other at home: No Do you presently have visiting nurse or other home services: No Alcohol intake: current Alcohol intake frequency: holidays/special occasions only Patient Tobacco Use Status: Never used Tobacco e-Cigarette/Vaping Use: Never Used service: No Current occupational status: employed Sexual orientation: Straight/Heterosexual Gender identity: Female Cognitive needs: No Hearing needs: No Vision needs: No Female Reproductive History Menstrual Age of Menarche: 10 Review of Systems Const All systems reviewed & are unremarkable except as noted in HPI and below Reports as per HPI and Reports no additional complaints GI Reports no additional complaints Reports no additional complaints Telehealth Telehealth Telehealth Platform: Telephone Location of provider rendering services: practice address Location of patient: address on file Patient Identification confirmed using: Name, : Yes Telehealth method: video Patient verbally consented to treatment: Yes Patient verbally consented to billing insurance company: Yes Patient informed of any privacy concerns related to visit: Yes Assessment & Plan Assessment & Plan (1) Complex ovarian cyst: Comment: Elevated CA 125 Code(s): N83.299 - Other ovarian cyst, unspecified side Category: Medical Plan: Discussed with the patient the finding on ultrasound showing complex ovarian cyst with septation, the differential diagnosis discussed with the patient included but not limited to pre malignant, malignant and other bead machine operator non bead 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 In addition, that CA 125 has a low sensitivity in early stage ovarian cancer and a low specificity particularly in premenopausal patient, recommended MRI of the pelvis with contrast as the next step. Instructions given the patient to schedule MRI of the pelvis and a repeat CA 125 and a follow-up appointment within 2 weeks. All questions answered, the patient verbalized understanding. I spent a total of 20 minutes reviewing the chart, talking to the patient via video and documenting in the medical record. Orders: Orders MR pelvis wo/w con Today N83.299 - Other ovarian cyst, unspecified side CA-125 2 Weeks N83.299 - Other ovarian cyst, unspecified side Coding Level of Care Code Tele Est Pt Level 1 (63049) Diagnoses Complex ovarian cyst N83.299
== END 2024-04-08 11:28 | disposition home or self-care (01) ==
LOC: HO.HWS 10:18
PROVIDERS: PCP Internal Medicine; Visit Provider Obstetrics & Gynecology
DX: N83.299 Other ovarian cyst, unspecified side (principal)
CPT/HCPCS: 99211

== ENCOUNTER → 2024-04-08 10:18 | Outpatient (BNVA) | payer OTHER, SELFPAY | PROVIDERS: PCP Internal Medicine; Visit Provider Obstetrics & Gynecology ==

== ENCOUNTER 2024-04-15 09:30 | Outpatient (REF) | payer OTHER, SELFPAY ==
[2024-04-15 11:28] LABS: Blood Urea Nitrogen 14 mg/dL (9-16); Estimated Glomerular Filt Rate > 60
[2024-04-16 09:04] LABS: CA-125 13 U/mL (<35)
== END 2024-04-15 09:31 | disposition home or self-care (01) ==
LOC: HO.LAB 09:30
PROVIDERS: PCP Internal Medicine; Visit Provider Obstetrics & Gynecology
DX: N83.299 Other ovarian cyst, unspecified side (principal)
CPT/HCPCS: 36415; 82565; 84520; 86304

== ENCOUNTER 2024-05-22 11:59 | Outpatient (AMB) | payer OTHER, SELFPAY ==
--- NOTE | 2024-05-22 12:02 | A.OFFVIS_ITS ---
Vital Signs 05/22/24 12:06 Height 5 ft 4 in Weight 141 lb 1.533 oz BMI 24.2 Intake Visit Reasons: MRI results Executive Office Manager Required: No Information Interpreted: non-clinical & clinical Accompanied by: Self / Same As Patient Allergies No Known Allergies Allergy (Verified 05/22/24 12:07) HPI Comments Details: Presenting for follow-up pelvic MRI regarding right complex ovarian cyst was identified on pelvic ultrasound done in 03/26. Pelvic MRI showed the right complex ovarian cyst suggestive of physiologic colpo luteum cyst . CA 125 was 47 on 04/04/2024 repeated was 13 on 04/15/24. PFSH Medical History Vitamin D deficiency Anemia Acne vulgaris Surgical History Hx of section Family History Father Hx of diabetes mellitus Sister Diabetes mellitus Hypothyroidism Paternal Aunt Cancer Other No family history of breast cancer Social History Household Members: Children Housing: House Are you a primary day care provider to a significant other at home: No Do you presently have visiting nurse or other home services: No Alcohol intake: current Alcohol intake frequency: holidays/special occasions only Patient Tobacco Use Status: Never used Tobacco e-Cigarette/Vaping Use: Never Used service: No Current occupational status: employed Sexual orientation: Straight/Heterosexual Gender identity: Female Cognitive needs: No Hearing needs: No Vision needs: No Female Reproductive History Menstrual Age of Menarche: 10 Review of Systems Const All systems reviewed & are unremarkable except as noted in HPI and below Reports as per HPI and Reports no additional complaints GI Reports no additional complaints Reports no additional complaints Physical Exam Vital Signs: BMI result Body Mass Index 24.2 Assessment & Plan Assessment & Plan (1) Complex ovarian cyst: Code(s): N83.299 - Other ovarian cyst, unspecified side Category: Medical Plan: Discussed with the patient the complex ovarian cyst by ultrasound. Discussed with the patient the Ultrasound findings, the main limitation of transvaginal ultrasonography alone as a diagnostic tool to distinguish benign from malignant masses relates to its lack of specificity and low positive predictive value for cancer. The differential diagnosis discussed with the patient includes the following but not limited to: benign and malignant gynecological and non-gynecological causes. Laboratory evaluation include UPT and GC/CT , serum tumor marker CA 125 . Discussed with the patient that CA 125 is a protein associated with epithelial ovarian malignancies, but also frequently expressed at lower levels by nonmalignant tissue. Elevation of CA 125 levels may occur in nonmalignant gynecologic conditions, and in non-gynecologic cancers, It is most useful in postmenopausal women and in identifying non mucinous epithelial cancer. The CA 125 level is elevated in 80% of patients with epithelial ovarian cancer but in only 50% of patients with stage I disease. The overall sensitivity of CA 125 testing in distinguishing benign from malignant adnexal masses reportedly ranges from 61% to 90%; discussed with the patient the specificity, positive predictive value and negative predictive value. Discussed with the patient options of treatment , in case CA 125 is not elevate d, including laparoscopy ovarian cystectomy/oophorectomy vs. expectant management with repeat US in repeating pelvic US in 6 weeks from previous US. If the ovarian complex cyst is persistent larger and / or more complex looking, or higher CA 125 will refer to gynecologic Oncology. All pros, cons, risks and benefits of each approach were discussed with the patient including but not limited to a delay in the diagnosis and treatment of ovarian cancer affecting the prognosis; The patient decided to go ahead with expectant management. Instructions given the patient to schedule a 2 months follow-up ultrasound appointment. All questions were answered & the patient verbalized understanding and agreed with the plan. Orders: Orders US pelvic and transvaginal 07/02/24 N83.299 - Other ovarian cyst, unspecified side Coding Level of Care Code Est Pt Level 3 (32236) Diagnoses Complex ovarian cyst N83.299
[2024-05-22 12:06] VITALS: BMI 24.2
== END 2024-05-22 12:27 | disposition home or self-care (01) ==
LOC: HO.HWS 11:59
PROVIDERS: PCP Internal Medicine; Visit Provider Obstetrics & Gynecology
DX: N83.299 Other ovarian cyst, unspecified side (principal)
CPT/HCPCS: 99213

== ENCOUNTER → 2024-05-22 11:59 | Outpatient (BNVA) | payer OTHER, SELFPAY | PROVIDERS: PCP Internal Medicine; Visit Provider Obstetrics & Gynecology | DX: N83.299 Other ovarian cyst, unspecified side (principal) | CPT/HCPCS: 99212 ==

== ENCOUNTER 2024-07-03 10:55 | Outpatient (REF) | payer OTHER, SELFPAY ==
--- NOTE | ~2024-07-03 | US_ITS ---
EXAMINATION: US PELVIS CLINICAL INFORMATION: Order or ovarian cyst, unspecified site. COMPARISON: Ultrasound dated March 13, 2024. TECHNIQUE: Ultrasound of the pelvis is performed using both transabdominal and transvaginal transducers along with Doppler. Transvaginal imaging is performed due to inadequate visualization transabdominally. FINDINGS: submitted for interpretation on August 13, 2024. Uterus: The uterus is anteverted and measures 10 x 5 x 7 cm. The double wall endometrial thickness is 12 mm. There is a 5 cm heterogeneous mixed echotexture soft tissue mass within the myometrium of the body of the uterus. There is a 1 cm intramural hypoechoic lesion in the fundus of the uterus. Adnexa: Both ovaries are visualized. There is normal color flow to the adnexa. There is no ovarian torsion. There is no pelvic ascites or fluid collection. No gross solid or cystic lesion. Right ovary measures 4 x 2 x 3 cm. Volume is 9 cc. Left ovary measures 4 x 2 x 4 cm. Volume is 13 cc. US/US pelvic and transvaginal IMPRESSION: Uterine fibroids, the largest measures 5 cm. I do not see an endometrial polyp obtained by the automotive machinist. If clinical concern recommend direct inspection. No ovarian torsion. Thickened, 12 mm endometrial stripe. Correlate with menstrual cycle. Electronically signed by: Donnie Madera MD 08/13/2024 09:09 AM NO HERNÁNDEZ
== END 2024-07-03 10:56 | disposition home or self-care (01) ==
LOC: HO.US 10:55
PROVIDERS: PCP Internal Medicine; Visit Provider Obstetrics & Gynecology
DX: D21.9 Benign neoplasm of connective and other soft tissue, unspecified (principal); N83.299 Other ovarian cyst, unspecified side
CPT/HCPCS: 76830; 76856

== ENCOUNTER → 2024-07-03 10:57 | Outpatient (BNV) | payer OTHER, SELFPAY | PROVIDERS: PCP Internal Medicine; Visit Provider Radiology Diagnostic Radiology | DX: D25.9 Leiomyoma of uterus, unspecified (principal) | CPT/HCPCS: 76830; 76856 ==

== ENCOUNTER 2024-07-28 13:48 | Outpatient (AMB) | payer OTHER, SELFPAY ==
[2024-07-28 14:44] VITALS: BP 122/86; PULSE 70; O2SAT 98; BMI 24.5
--- NOTE | 2024-07-28 14:44 | MHC.OFFWIV ---
Intake Vital Signs 07/28/24 14:44 Height 5 ft 4 in Weight 143 lb BMI 24.5 BP 122/86 Blood Pressure Location Lt brachial Position Sitting Pulse 70 Pulse Source Pulse Oximeter Pulse Oximetry (%) 98 Oxygen Delivery Method Room Air Intake Visit Reasons: EP Pain on RT knee Intake Note: Patient here for right knee pain, she states she may have injured it while doing martial arts. Patient Tobacco Use Status: Never used Tobacco Information Interpreted: clinical only Allergies No Known Allergies Allergy (Verified 07/28/24 14:47) Do you need a note to return to daycare/school/sports/work: No HPI HPI Comments History of Present Illness Details History of Present Illness The patient is a 34-year-old female presenting with knee pain. The knee discomfort has persisted for approximately a couple of months. Initially, the pain worsened, improved temporarily, and is now partially ameliorating. The patient describes the pain as exacerbated by activities such as squats, hyperextension, and pressure during exercises like Jiu-Jitsu, particularly when the knee is extended fully. The pain is localized to the sides of the kneecap. While walking or rising too quickly from a sitting position also causes discomfort, wearing a knee brace during workouts has been beneficial in providing stability and alleviation. When the pain was more severe, the patient applied ice and an Alberto wrap. However, the patient has not significantly decreased physical activity or allowed extended rest to the affected knee. [facility] Medical History Vitamin D deficiency Anemia Acne vulgaris Surgical History Hx of section Family History Father Hx of diabetes mellitus Sister Diabetes mellitus Hypothyroidism Paternal Aunt Cancer Other No family history of breast cancer Social History Household Members: Children Housing: House Are you a primary multi care technician to a significant other at home: No Do you presently have visiting nurse or other home services: No Alcohol intake: current Alcohol intake frequency: holidays/special occasions only Patient Tobacco Use Status: Never used Tobacco e-Cigarette/Vaping Use: Never Used service: No Current occupational status: employed Sexual orientation: Straight/Heterosexual Gender identity: Female Cognitive needs: No Hearing needs: No Vision needs: No Female Reproductive History Menstrual Age of Menarche: 10 Review of Systems Const All systems reviewed & are unremarkable except as noted in HPI and below Physical Exam Vital Signs: Last Vital Signs Pulse 70 07/28/24 14:44 BP 122/86 07/28/24 14:44 Pulse Ox 98 07/28/24 14:44 Oxygen Delivery Method Room Air 07/28/24 14:44 BMI result Body Mass Index 24.5 Const General: cooperative, healthy appearing, comfortable and no acute distress Orientation/consciousness: patient oriented x3 Limitations: no limitations HEENT Head: Yes normal to inspection Resp Effort & Inspection: normal respiratory effort and able to speak in complete sentences Neuro General: patient oriented x3 Extrem Right lower extremity: knee Details: normal to inspection, tenderness Location: of the patella Details: medially and laterally, normal ROM and knee ligament exam normal; no swelling, no abrasions, no lacerations, no ecchymosis, no crepitus, no deformity and no unusual warmth and lower leg Details: normal to inspection and no edema; no tenderness Assessment & Plan Assessment & Plan (1) Patellar tendinitis of right knee: Code(s): M76.51 - Patellar tendinitis, right knee Plan: For the diagnosed patellar tendonitis, advise the patient to rest the affected knee and refrain from activities that exacerbate the pain. Recommend the application of ice to reduce inflammation and the use of a nonsteroidal anti-inflammatory drug, such as ibuprofen, for pain management. Encourage the patient to wear the knee brace during physical activities for additional support. Suggest a pause from intensive activities like Jiu-Jitsu and squats that impose significant stress on the knee joint, focusing instead on exercises that do not involve strenuous knee engagement to allow recovery. Emphasize proper warm-up and cool-down routines, along with exercises to strengthen the quadriceps muscles to prevent further strain on the knee. A follow-up with the primary care physician is advised if symptoms deteriorate. Patient was informed and verbally consented to the use of an ambient scribe for clinic note documentation during this visit. Coding Level of Care Code Est Pt Level 3 (08193) Diagnoses Patellar tendinitis of right knee M76.51
== END 2024-07-28 15:17 | disposition home or self-care (01) ==
PROVIDERS: PCP Internal Medicine; Visit Provider Physician Assistant
DX: M76.51 Patellar tendinitis, right knee (principal)

== ENCOUNTER → 2024-07-28 13:48 | Outpatient (BNVA) | payer OTHER, SELFPAY | PROVIDERS: PCP Internal Medicine; Visit Provider Physician Assistant | DX: M76.51 Patellar tendinitis, right knee (principal) | CPT/HCPCS: 99212 ==

== ENCOUNTER 2024-08-14 14:33 | Outpatient (AMB) | payer OTHER, SELFPAY ==
--- NOTE | 2024-08-14 14:33 | A.OFFVIS_ITS ---
Intake Visit Reasons: u/s results Allergies No Known Allergies Allergy (Verified 07/28/24 14:47) HPI Comments Details: The patient is scheduled tele health visit for follow-up complex ovarian cyst in myomas previously seen on pelvic ultrasound on 03/13/2024. Recent ultrasound done on 07/03/2024 showed the following: Uterus: The uterus is anteverted and measures 10 x 5 x 7 cm. The double wall endometrial thickness is 12 mm. There is a 5 cm heterogeneous mixed echotexture soft tissue mass within the myometrium of the body of the uterus. There is a 1 cm intramural hypoechoic lesion in the fundus of the uterus. Adnexa: Both ovaries are visualized. There is normal color flow to the adnexa. There is no ovarian torsion. There is no pelvic ascites or fluid collection. No gross solid or cystic lesion. Right ovary measures 4 x 2 x 3 cm. Volume is 9 cc. Left ovary measures 4 x 2 x 4 cm. Volume is 13 cc. PFSH Medical History Vitamin D deficiency Anemia Acne vulgaris Surgical History Hx of section Family History Father Hx of diabetes mellitus Sister Diabetes mellitus Hypothyroidism Paternal Aunt Cancer Other No family history of breast cancer Social History Household Members: Children Housing: House Are you a primary team primary care physician to a significant other at home: No Do you presently have visiting nurse or other home services: No Alcohol intake: current Alcohol intake frequency: holidays/special occasions only Patient Tobacco Use Status: Never used Tobacco e-Cigarette/Vaping Use: Never Used service: No Current occupational status: employed Sexual orientation: Straight/Heterosexual Gender identity: Female Cognitive needs: No Hearing needs: No Vision needs: No Female Reproductive History Menstrual Age of Menarche: 10 Review of Systems Const All systems reviewed & are unremarkable except as noted in HPI and below Reports as per HPI and Reports no additional complaints GI Reports no additional complaints Reports no additional complaints Telehealth Telehealth Telehealth Platform: Telephone Location of provider rendering services: practice address Location of patient: address on file Patient Identification confirmed using: Name, : Yes Telehealth method: video Patient verbally consented to treatment: Yes Patient verbally consented to billing insurance company: Yes Patient informed of any privacy concerns related to visit: Yes Assessment & Plan Assessment & Plan (1) Complex ovarian cyst: Comment: Resolved Code(s): N83.299 - Other ovarian cyst, unspecified side Category: Medical Plan: Discussed with the patient ultrasound findings showing the previously identified complex cyst has resolved. The patient was instructed to call if symptoms recur. All questions were answered the patient verbalized understanding. (2) Uterine myoma: Code(s): D25.9 - Leiomyoma of uterus, unspecified Category: Medical Plan: Discussed with the patient the findings on pelvic ultrasound & the risk of myosarcoma; discussed with the patient the options of treatment including expectant management versus hysterectomy; the pros and cons, risks benefits of each approach were discussed with the patient including the fact that in cases of myosarcoma, surgical treatment can lead to early diagnosis and positively affects the prognosis; after further discussion, the patient decided to proceed with expectant management . All questions answered, the patient verbalized u nderstanding and agreed with the plan . I spent a total of 20 minutes reviewing the chart, talking to the patient via video and documenting in the medical record. Coding Level of Care Code Tele Est Pt Level 3 (24786) Diagnoses Complex ovarian cyst N83.299 Uterine myoma D25.9
== END 2024-08-14 15:20 | disposition home or self-care (01) ==
LOC: HO.HWS 14:33
PROVIDERS: PCP Internal Medicine; Visit Provider Obstetrics & Gynecology
DX: N83.299 Other ovarian cyst, unspecified side (principal); D25.9 Leiomyoma of uterus, unspecified
CPT/HCPCS: 99213

== ENCOUNTER 2024-09-17 10:01 | Outpatient (REF) | payer OTHER, SELFPAY ==
[2024-09-17 13:04] LABS: MANUAL DIFF FLAG NO
[2024-09-17 13:20] LABS: Basophils Absolute Auto 0.1 X10*3/uL (0.0-0.2); Basophils Percent Auto 0.8 % (0-2); Eosinophils Absolute Auto 0.1 X10*3/uL (0.0-0.4); Eosinophils Percent Auto 1.6 % (0-4); Hematocrit 35.1 % (37.0-47.0); Hemoglobin 12.2 g/dl (12.0-16.0); Imm Gran Abs Auto 0.02 X10*3/uL (0.00-0.03); Imm Gran Pct Auto 0.3 % (0.0-0.4); Lymphocytes Absolute Auto 1.7 X10*3/uL (1.2-4.9); Lymphocytes Percent Auto 27.9 % (20-40); Mean Corpuscular HGB Conc 34.8 g/dl (31.0-35.0); Mean Corpuscular Hemoglobin 27.2 pg (27.0-33.0); Mean Corpuscular Volume 78.3 fL (80.0-98.0); Mean Platelet Volume 10.9 fL (9.4-12.3); Monocytes Absolute Auto 0.7 X10*3/uL (0.1-1.2); Neutrophils Absolute Auto 3.5 x10*3/uL (2.0-8.3); Neutrophils Percent Auto 57.4 % (45-73); Platelet Count 330 X10*3/uL (160-400); Red Blood Count 4.48 X10*6/uL (4.20-5.50); Red Cell Distribution Width 14.7 % (11.0-16.0); White Blood Count 6.1 X10*3/uL (4.8-10.8)
[2024-09-17 13:30] LABS: Anion Gap 11 (12-20); Blood Urea Nitrogen 17 mg/dL (9-16); Carbon Dioxide 28 mmol/L (22-29); Chloride 105 mmol/L (96-108); Estimated Glomerular Filt Rate > 60; Glucose Random 79 mg/dL (60-115); Iron 176 mcg/dL (30-160); Percent Iron Saturation 51 % (15-50); Potassium 4.2 mmol/L (3.3-5.1); Sodium 140 mmol/L (135-145); Total Iron Binding Capacity 342 mcg/dL (228-428); Unsaturated Iron Binding 166 ug/dL
[2024-09-17 13:45] LABS: TSH reflex Free T4 1.14 uIU/mL (0.32-4.0)
== END 2024-09-17 10:02 | disposition home or self-care (01) ==
LOC: HO.HMGCLDS 10:01
PROVIDERS: PCP Internal Medicine; Visit Provider Physician Assistant
DX: R53.83 Other fatigue (principal)
CPT/HCPCS: 36415; 80048; 83540; 84443; 85025; 99212

== ENCOUNTER 2024-09-17 10:01 | Outpatient (AMB) | payer OTHER, SELFPAY ==
[2024-09-17 10:42] VITALS: BP 114/78; PULSE 66; O2SAT 97; BMI 24.2
--- NOTE | 2024-09-17 10:42 | MHC.OFFWIV ---
Intake Vital Signs 09/17/24 10:42 Height 5 ft 4 in Weight 141 lb BMI 24.2 BP 114/78 Blood Pressure Location Rt brachial Position Sitting Pulse 66 Pulse Source Pulse Oximeter Pulse Oximetry (%) 97 Oxygen Delivery Method Room Air Intake Visit Reasons: EP-fatigue Intake Note: Patient here for very fatigued that has been present since 2022 and worsening. Patient Tobacco Use Status: Never used Tobacco Allergies No Known Allergies Allergy (Verified 09/17/24 11:14) Do you need a note to return to daycare/school/sports/work: Yes HPI HPI Comments History of Present Illness Details She presents to office with fatigue Ongoing x 2 years She said she has never been seen for it aside from PCP who gave iron pills She takes Iron pill prn but doesnt daily Last time she took it was yesterday + menstrualion still; last was 2 weeks ago She gets heavy bleeding with it Last week she also had cold/flu like symptoms [place] more fatigue yesterday but better today No URI symptoms now She said she sleeps good at night but is still tired She is unsure if she snores; minimal per boyfriend No fever or chills No syncope or dizziness She said intermittent chest pain episodes; 2 weeks ago. Has had over 6 months Normal bowel movements and urination She denies chance of PFSH Medical History Vitamin D deficiency Anemia Acne vulgaris Surgical History Hx of section Family History Father Hx of diabetes mellitus Sister Diabetes mellitus Hypothyroidism Paternal Aunt Cancer Other No family history of breast cancer Social History Household Members: Children Housing: House Are you a primary hearing care practitioner to a significant other at home: No Do you presently have visiting nurse or other home services: No Alcohol intake: current Alcohol intake frequency: holidays/special occasions only Patient Tobacco Use Status: Never used Tobacco e-Cigarette/Vaping Use: Never Used service: No Current occupational status: employed Sexual orientation: Straight/Heterosexual Gender identity: Female Cognitive needs: No Hearing needs: No Vision needs: No Female Reproductive History Menstrual Age of Menarche: 10 Review of Systems Const Denies chills, Reports fatigue, Denies fever(s) and Denies frequent falls Eyes Denies change in vision ENT Denies otalgia, Denies nasal congestion, Denies sore throat and Reports other (had URI symptoms last week which resolved) Card Reports chest pain (none now. last episod2 wks ago. ongoing intermittent x 6 months without sx), Denies syncope, Denies leg edema and Denies dyspnea Resp Denies cough and Denies dyspnea GI Denies abdominal pain, Denies melena, Denies hematochezia, Denies constipation, Denies diarrhea, Denies nausea and Denies vomiting Denies hematuria and Denies dysuria Musc Denies myalgias Skin/Breast Denies rash Neuro Denies syncope and Denies frequent falls Endo Reports fatigue Physical Exam Vital Signs: Last Vital Signs Pulse 66 09/17/24 10:42 BP 114/78 09/17/24 10:42 Pulse Ox 97 09/17/24 10:42 Oxygen Delivery Method Room Air 09/17/24 10:42 BMI result Body Mass Index 24.2 General: Non-toxic, NAD. Speaking full sentences. Skin: Warm dry throughout Eye: EOMI, PERRL. HENT: Airway patent. Uvula midline. No pharyngeal erythema or edema. 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 Bilateral canals clear. TM non-erythematous, non-bulging. No TM perforation or hemotympanum noted. Respiratory: CTA bilaterally. No wheezes, rales or rhonchi Cardiac: RRR. No murmur MSK: Full ROM extremities. Neurology: Alert. CN 2-12 grossly intact. No aphasia or facial droop. Gait without abnormality Psych: Good mood and affect Assessment & Plan Assessment & Plan (1) Fatigue: Code(s): R53.83 - Other fatigue Qualifiers: Fatigue type: unspecified Qualified Code(s): R53.83 - Other fatigue Plan: No acute abnormality noted on physical exam Discussed with pt that if she has hx of ABHINAV then she may need to take iron supplements again Checked for lyme in past and negative; denies recent bite Will order cbc, bmp, iron studies, thyroid for fatigue workup and encouraged to f/u with PCP ER symptoms discussed Orders: Orders Basic Metabolic Panel Today R53.83 - Other fatigue IRON PROFILE Today R53.83 - Other fatigue Complete Blood Count Auto Diff Today R53.83 - Other fatigue TSH reflex Free T4 Today R53.83 - Other fatigue Coding Level of Care Code Est Pt Level 4 (14781) Diagnoses Fatigue, unspecified type R53.83 Fatigue type: unspecified
== END 2024-09-17 11:31 | disposition home or self-care (01) ==
PROVIDERS: PCP Internal Medicine; Visit Provider Physician Assistant
DX: R53.83 Other fatigue (principal)

== ENCOUNTER 2024-09-26 09:26 | Outpatient (AMB) | payer OTHER, SELFPAY ==
--- NOTE | 2024-09-26 09:23 | MHC.PC.OV ---
Intake Visit Reasons: General health, ?anemia Intake Note: Pt is here today wants to discuss ? anemia Allergies No Known Allergies Allergy (Verified 09/26/24 09:40) Medication List - Last Reconciled 09/26/24 by Silvia Kiran MD [creatine monohydrate DAILY] tqsarruy-yry-qcfpjgr sulfate 4.5 mg iron (One Daily Multivitamins with Minerals) 1 tab PO DAILY 90 days zinc glycinate 20 mg PO DAILY Tobacco use date assessed: 09/26/24 Dental Screening Dental Screen Date: 09/26/24 Did you have a dental visit in the last 12 months?: Yes Did you have a dental problem in the last 6 months where you did not have access to dental care?: No Was dental information given to patient?: Patient has dentist HPI General health, ?anemia HPI Details 34-year-old lady here today for follow-up. She has history of anemia, currently on iron supplements. Recent fasting labs now showed iron levels and CBC within normal limits. She still complains of having intermittent episodes of fatigue, despite eating 3 meals a day and snacking in between. 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 Her recent fasting labs showed normal thyroid stimulating hormone, normal electrolytes renal function, random blood sugar slightly on the low side at 79 mg/dL . No complaints of chest pain headache, lightheadedness, palpitations, abdominal pain, or shortness of breath reported. [facility] Medical History (Updated 09/26/24 @ 09:55 by Silvia Kiran MD) History of vitamin D deficiency Pelvic pain in female Acne vulgaris Surgical History Hx of section Family History Father Hx of diabetes mellitus Sister Diabetes mellitus Hypothyroidism Paternal Aunt Cancer Other No family history of breast cancer Social History Household Members: Children Housing: House Are you a primary care consultant to a significant other at home: No Do you presently have visiting nurse or other home services: No Alcohol intake: current Alcohol intake frequency: holidays/special occasions only Patient Tobacco Use Status: Never used Tobacco e-Cigarette/Vaping Use: Never Used service: No Current occupational status: employed Sexual orientation: Straight/Heterosexual Gender identity: Female Cognitive needs: No Hearing needs: No Vision needs: No Female Reproductive History Menstrual Age of Menarche: 10 Questionnaire PHQ-9 Over the last 2 weeks, how often have you been bothered by any of the following problems? 1. Little interest or pleasure in doing things: not at all 2. Feeling down, depressed, or hopeless: not at all 3. Trouble falling or staying asleep, or sleeping too much: not at all 4. Feeling tired or having little energy: not at all 5. Poor appetite or overeating: not at all 6. Feeling bad about yourself - or that you are a failure or have let yourself or your family down: not at all 7. Trouble concentrating on things, such as reading the newspaper or watching television: not at all 8. Moving or speaking so slowly that other people could have noticed. Or the opposite - being so fidgety or restless that you have been moving around a lot more than usual: not at all 9. Thoughts that you would be better off or of hurting yourself in some way: not at all Total score: 0 Depression Screening Interpretation: Negative Depression Screening Done: Yes 76040 - PHQ-9 Billing: Yes Source: Developed by Drs. Tay Loyola, Vashti Mccracken, Johny Friedman and colleagues, with an educational castillo from [employer]. Thrive Questionnaire Date Thrive assessed: 09/26/24 I am a: Patient What is your living situation today?: I have a steady place to live Within the past 12 months, did the food you bought not last and you didn't have the money to get more?: Never true Within the past 12 months, did you worry whether your food would run out before you got money to buy more?: Never true Do you have trouble paying for medicines?: No Do you have trouble getting transportation to medical appointments?: No Do you have trouble paying your heating and electricity bill?: No Do you have trouble taking care of your child, family member or friend?: No Do you have trouble with day-to-day activities such as bathing, preparing meals, shopping, managing finances, etc.?: No Are you currently unemployed and looking for a job?: No THRIVE Score: 0 AUDIT C Alcohol Use Questionnaire (AUDIT-C) 2. How many drinks containing alcohol do you have on a typical day when you are drinking?: 1 or 2 3. How often do you have six or more drinks on one occasion?: Less than monthly Total Score: 1 AFRICA-7 AMB Questionnaire AFRICA-7 Date AFRICA - 7 assessed: 09/26/24 Feeling nervous, anxious, or on edge: 0 = Not at all Not being able to stop or control worryin = Not at all Worrying too much about different things: 0 = Not at all Trouble relaxin = Not at all Being so restless that it is hard to sit still: 0 = Not at all Becoming easily annoyed or irritable: 0 = Not at all Feeling afraid as if something awful might happen: 0 = Not at all Total AFRICA-7 score (0-4 normal; 5-9 mild; 10-14 moderate; 15-21 severe): 0 Source: Developed by Drs. Tay Loyola, Vashti Mccracken, Johny Friedman and colleagues, with an educational castillo from [employer]. Review of Systems Const Denies body aches, Denies chills, Denies difficulty sleeping, Denies fever(s) and Denies poor appetite Eyes Denies change in vision ENT Reports no additional complaints and Denies nasal congestion Card Denies chest pain, Denies chest pain with activity, Denies irregular heart rhythm, Denies leg edema and Denies dyspnea Resp Denies cough and Denies dyspnea GI Denies abdominal pain, Denies melena, Denies hematochezia, Denies change in bowel habits and Denies heartburn Denies hematuria and Denies dysuria Musc Denies myalgias and Denies arthralgias Skin/Breast Denies rash Neuro Reports no additional complaints Psych Reports no additional complaints Endo Reports no additional complaints Kenn/Lymph Reports no additional complaints Physical exam (Primary Care) Tobacco/Smoking Status: Tobacco use Status Tobacco use date assessed 09/26/24 09/26/24 09:25 Patient Tobacco Use Status Never used Tobacco 09/26/24 09:25 e-Cigarette/Vaping Use Never Used 09/26/24 09:25 PHQ-9: PHQ-9 Score PHQ-9: Total score 0 09/26/24 09:26 Depression Screening Interpretation: Negative Thrive Assessment: Date of Thrive Assessment Date Thrive assessed 09/26/24 09/26/24 09:26 Telehealth Telehealth Telehealth Platform: [employer] Location of provider rendering services: practice address Location of patient: address on file Patient Identification confirmed using: Name, : Yes Telehealth method: video Patient verbally consented to treatment: Yes Patient verbally consented to billing insurance company: Yes Patient informed of any privacy concerns related to visit: Yes Minutes spent on Phone/Video with Pt.: 15 Results Reviewed Results Reviewed: Name: Darya Romero Age/Sex: 34/F : 1990 Unit#: [id number] Attend Dr: Debbie López PA-C Re09/17/24 Status: DEP REF Location: [facility] Disch: SPEC : [id number] RON: 09/17/24 STATUS: COMP REQ : [id number] RECD: 09/17/[address]: Debbie López PA-C COMP: 09/17/24 ENTERED: 09/17/[address]: Silvia Kiran MD, Deborah PA-C ORDERED: CBC Auto Diff Test Result Flag Reference WBC 6.1 4.8-10.8 X10*3/uL RBC 4.48 4.20-5.50 X10*6/uL HGB 12.2 12.0-16.0 g/dl HCT 35.1 L 37.0-47.0 % MCV 78.3 L 80.0-98.0 fL MCH 27.2 27.0-33.0 pg MCHC 34.8 31.0-35.0 g/dl RDW 14.7 11.0-16.0 % PLT 330 # 160-400 X10*3/uL MPV 10.9 9.4-12.3 fL Neut Pct Auto 57.4 45-73 % ImGran Pct Auto 0.3 0.0-0.4 % Lymp Pct Auto 27.9 20-40 % [place] Pct Auto 12.0 H 2-11 % Eos Pct Auto 1.6 0-4 % Baso Pct Auto 0.8 0-2 % NRBC Pct Auto 0.0 0.0-0.2 /100WBC ANC Neut Abs # 3.5 2.0-8.3 x10*3/uL ImGran Abs Auto 0.02 0.00-0.03 X10*3/uL Lymph Abs Auto 1.7 1.2-4.9 X10*3/uL [place] Abs Auto 0.7 0.1-1.2 X10*3/uL Eos Abs Auto 0.1 0.0-0.4 X10*3/uL Baso Abs Auto 0.1 0.0-0.2 X10*3/uL NRBC Abs Auto 0.000 0.0-0.012 X10*3/uL Name: Darya Romero Age/Sex: 34/F : 1990 Unit#: [id number] Attend Dr: Debbie López PA-C Re09/17/24 Status: DEP REF Location: [facility] Disch: SPEC : [id number] RON: 09/17/24 STATUS: COMP REQ : [id number] RECD: 09/17/24-[address]: Debbie López PA-C COMP: 09/17/24-1344 ENTERED: 09/17/24-[address]: Silvia Kiran MD, Deborah PA-C ORDERED: BMP, IRON PROF, TSH Rflx Test Result Flag Reference Sodium 140 135-145 mmol/L Potassium 4.2 3.3-5.1 mmol/L CL 105 96-108 mmol/L CO2 28 22-29 mmol/L Gap 11 L 12-20 BUN 17 H 9-16 mg/dL Creat 0.74 0.5-1.4 mg/dL eGFR > 60 Chronic Kidney Disease: Estimated GFR < 60 mL/min/1.73m2 Severe Kidney Disease: Estimated GFR < 15 mL/min/1.73m2 Glucose, Random 79 60-115 mg/dL CA 10.0 8.4-10.2 mg/dL Iron 176 H 30-160 mcg/dL TIBC 342 228-428 mcg/dL Saturation 51 H 15-50 % UIBC 166 ug/dL TSH 1.14 0.32-4.0 uIU/mL Coding Level of Care Code Tele Est Pt Level 3 (02996) Diagnoses History of anemia Z86.2 Malaise R53.81 Additional Codes PHQ-9 - 16351 - PHQ-9 Billing: Yes ([id number]) Assessment & Plan Assessment & Plan (1) History of anemia: Code(s): Z86.2 - Personal history of diseases of the blood and blood-forming organs and certain disorders involving the immune mechanism Category: Medical Plan: Reviewed recent labs with patient which showed normal CBC, iron levels are normal continue with taking multivitamins, continue with healthy diet and regular exercise. (2) Malaise: Code(s): R53.81 - Other malaise Category: Medical Plan: Her TSH, vitamin B12, folic acid, CBC electrolytes renal function, glucose levels are all within normal limits. Likely mellitus due to deconditioning, continue with doing regular cardio exercise at least 15 minutes daily, adhere to a healthy diet, eat 3 meals a day and snack in between with healthy snacks such as fruit, nuts. Advised to start taking ugja-fjw-wetwnoy vitamin-D 3 at least 2000 units daily, but check 1st her multivitamin tablets if that is already containing vitamin-D. Will see her for follow-up and physical exam in 03/22/2025 Orders: Orders Basic Metabolic Panel Fasting 03/03/25 N84.0 - Polyp of corpus uteri, N93.9 - Abnormal uterine and vaginal bleeding, unspecified, R53.81 - Other malaise, Z13.1 - Encounter for screening for diabetes mellitus, Z13.29 - Encounter for screening for other suspected endocrine disorder, Z53.20 - Procedure and treatment not carried out because of patient's decision for unspecified reasons, Z83.3 - Family history of diabetes mellitus, Z83.49 - Family history of other endocrine, nutritional and metabolic diseases, Z86.2 - Personal history of diseases of the blood and blood-forming organs and certain disorders involving the immune mechanism, Z86.39 - Personal history of other endocrine, nutritional and metabolic disease Vitamin D 25-OH Total 03/03/25 N84.0 - Polyp of corpus uteri, N93.9 - Abnormal uterine and vaginal bleeding, unspecified, R53.81 - Other malaise, Z13.1 - Encounter for screening for diabetes mellitus, Z13.29 - Encounter for screening for other suspected endocrine disorder, Z53.20 - Procedure and treatment not carried out because of patient's decision for unspecified reasons, Z83.3 - Family history of diabetes mellitus, Z83.49 - Family history of other endocrine, nutritional and metabolic diseases, Z86.2 - Personal history of diseases of the blood and blood-forming organs and certain disorders involving the immune mechanism, Z86.39 - Personal history of other endocrine, nutritional and metabolic disease Vitamin B12 and Folate 03/03/25 N84.0 - Polyp of corpus uteri, N93.9 - Abnormal uterine and vaginal bleeding, unspecified, R53.81 - Other malaise, Z13.1 - Encounter for screening for diabetes mellitus, Z13.29 - Encounter for screening for other suspected endocrine disorder, Z53.20 - Procedure and treatment not carried out because of patient's decision for unspecified reasons, Z83.3 - Family history of diabetes mellitus, Z83.49 - Family history of other endocrine, nutritional and metabolic diseases, Z86.2 - Personal history of diseases of the blood and blood-forming organs and certain disorders involving the immune mechanism, Z86.39 - Personal history of other endocrine, nutritional and metabolic disease TSH reflex Free T4 03/03/25 N84.0 - Polyp of corpus uteri, N93.9 - Abnormal uterine and vaginal bleeding, unspecified, R53.81 - Other malaise, Z13.1 - Encounter for screening for diabetes mellitus, Z13.29 - Encounter for screening for other suspected endocrine disorder, Z53.20 - Procedure and treatment not carried out because of patient's decision for unspecified reasons, Z83.3 - Family history of diabetes mellitus, Z83.49 - Family history of other endocrine, nutritional and metabolic diseases, Z86.2 - Personal history of diseases of the blood and blood-forming organs and certain disorders involving the immune mechanism, Z86.39 - Personal history of other endocrine, nutritional and metabolic disease Lipid Panel 03/03/25 N84.0 - Polyp of corpus uteri, N93.9 - Abnormal uterine and vaginal bleeding, unspecified, R53.81 - Other malaise, Z13.1 - Encounter for screening for diabetes mellitus, Z13.29 - Encounter for screening for other suspected endocrine disorder, Z53.20 - Procedure and treatment not carried out because of patient's decision for unspecified reasons, Z83.3 - Family history of diabetes mellitus, Z83.49 - Family history of other endocrine, nutritional and metabolic diseases, Z86.2 - Personal history of diseases of the blood and blood-forming organs and certain disorders involving the immune mechanism, Z86.39 - Personal history of other endocrine, nutritional and metabolic disease Complete Blood Count Auto Diff 03/03/25 N84.0 - Polyp of corpus uteri, N93.9 - Abnormal uterine and vaginal bleeding, unspecified, R53.81 - Other malaise, Z13.1 - Encounter for screening for diabetes mellitus, Z13.29 - Encounter for screening for other suspected endocrine disorder, Z53.20 - Procedure and treatment not carried out because of patient's decision for unspecified reasons, Z83.3 - Family history of diabetes mellitus, Z83.49 - Family history of other endocrine, nutritional and metabolic diseases, Z86.2 - Personal history of diseases of the blood and blood-forming organs and certain disorders involving the immune mechanism, Z86.39 - Personal history of other endocrine, nutritional and metabolic disease Aspartate Amino Transferase 03/03/25 N84.0 - Polyp of corpus uteri, N93.9 - Abnormal uterine and vaginal bleeding, unspecified, R53.81 - Other malaise, Z13.1 - Encounter for screening for diabetes mellitus, Z13.29 - Encounter for screening for other suspected endocrine disorder, Z53.20 - Procedure and treatment not carried out because of patient's decision for unspecified reasons, Z83.3 - Family history of diabetes mellitus, Z83.49 - Family history of other endocrine, nutritional and metabolic diseases, Z86.2 - Personal history of diseases of the blood and blood-forming organs and certain disorders involving the immune mechanism, Z86.39 - Personal history of other endocrine, nutritional and metabolic disease Alanine Aminotransferase 03/03/25 N84.0 - Polyp of corpus uteri, N93.9 - Abnormal uterine and vaginal bleeding, unspecified, R53.81 - Other malaise, Z13.1 - Encounter for screening for diabetes mellitus, Z13.29 - Encounter for screening for other suspected endocrine disorder, Z53.20 - Procedure and treatment not carried out because of patient's decision for unspecified reasons, Z83.3 - Family history of diabetes mellitus, Z83.49 - Family history of other endocrine, nutritional and metabolic diseases, Z86.2 - Personal history of diseases of the blood and blood-forming organs and certain disorders involving the immune mechanism, Z86.39 - Personal history of other endocrine, nutritional and metabolic disease
== END 2024-09-26 11:02 | disposition home or self-care (01) ==
LOC: HO.HMCC 09:26
PROVIDERS: PCP Internal Medicine; Visit Provider Internal Medicine
DX: Z86.2 Personal history of diseases of the blood and blood-forming organs and certain disorders involving the immune mechanism (principal); R53.81 Other malaise

== ENCOUNTER → 2024-09-26 09:26 | Outpatient (BNVA) | payer OTHER, SELFPAY | PROVIDERS: PCP Internal Medicine; Visit Provider Internal Medicine | DX: R53.81 Other malaise (principal); Z86.2 Personal history of diseases of the blood and blood-forming organs and certain disorders involving the immune mechanism | CPT/HCPCS: 96127 ==

== ENCOUNTER → 2024-10-28 10:00 | Outpatient (BNVA) | payer SELFPAY | PROVIDERS: PCP Internal Medicine; Visit Provider Advanced Practice Midwife ==

== ENCOUNTER 2025-01-14 07:17 | Outpatient (AMB) | payer OTHER, SELFPAY ==
--- OUTSIDE RECORDS SUMMARY | 2025-01-14 07:20 | XMS_ITS | Clinical Summary ---
Author Organization [facility] Address [address] [place] [address] Care Team Providers Care Director Medical Name Role Phone Catrachita Sarmiento PA-C Primary Care Provider [phone] Source Comments PLEASE NOTE, if this patient is a minor, it may be UNLAWFUL to discuss sensitive information that is contained in these records (such as FAMILY PLANNING, MENTAL HEALTH or SUBSTANCE ABUSE) with the minor patient's parent or other person without the patient's specific authorization.[facility] Allergies No known active allergies Medications levonorgestrel (MIRENA) 20 mcg/24 hr (5 years) IUDIndications:Bir th control counseling Place 1 Each into the uterus every 5 (five) years. 1 Each 0 6 Active CLARAVIS 40 mg capsule 6 Active medroxyPROGESTERon e (DEPO-PROVERA) 150 mg/mL syringeIndications :Family planning, Depo-Provera contraception monitoring/adminis tration Inject 1 mL into the muscle every 3 (three) months. 1 mL 1 6 Active Active Problems Problem Noted Date Diagnosed Date IUD strings lost 03/30/2016 Overview (03/30/2016): checkin pelvic u/s to confirm if iud is in place- or expelled pelvic u/s is for insertion of mirena IUD/remove by 12/01/2020 12/03/2015 Overview (12/03/2015): Placed 12/03/15 removal is by 12/01/2020 control 07/08/2015 Overview (10/06/2015): 10/06/15 planning nexplanon placemnt taking ocp's ACHES reviewed Stopping Minocycline today 07/08/15 Acne 11/11/2014 Overview (01/02/2016): Began ACCUTANE MUST HAVE CONTROL followed by dev- [phone] F/u Dermatology Dr. Felipe in [place]. Pap smear for cervical cancer screening 09/16/19 15 Overview (10/06/2015): 04/04/10: NIL with ECC 08/02/12: NIL with ECCHPV NEGATIVE next pap due 07/201508/16/14 Pelvic pain in female 08/19/2014 Overview (09/18/2014): 08/19/14:Right ovary tender to palp. GC/CT done today to r/o infection. Pelvic u/s ordred 09/10/14;for ovarian pain. NOT enlarged on exam? Resolving cyst??? 08/19/14: gc and ct neg 09/10/14 [facility]: uterus normal size. Endometrial stripe is 9mm; ovaries normal no masses no free fluid normal ultra sound Immunizations Immunization Administration Dates Next Due Hep B, Adult/Adol (ENERGIX/RECOMBIVAX) 6 History Of Varicella 12/18/2015 INFLUENZA, SEASONAL, INJECTABLE 07/24/2013 MMR (MMR II/Priorix) 12/18/2015 TDAP 12/17/2015 Family History Medical History Relation Name Comments Diabetes Brother Diabetes Father Diabetes Maternal Aunt Diabetes Maternal Grandfather Diabetes Maternal Grandmother Diabetes Maternal Uncle Diabetes Mother Diabetes Paternal Aunt Diabetes Paternal Grandfather Diabetes Paternal Grandmother Diabetes Paternal Uncle Diabetes Sister Relation Name Status Comments Brother Father Maternal Aunt Maternal Grandfather Maternal Grandmother Maternal Uncle Mother Paternal Aunt Paternal Grandfather Paternal Grandmother Paternal Uncle Sister Social History Tobacco Use Types Packs/Day Years Used Date Smoking Tobacco: Never Smokeless Tobacco: Never Alcohol Use Standard Drinks/Week Comments No 0 (1 standard drink = 0.6 oz pur e alcohol) Social Connections Answer Date Recorded Social Connections and Isolation 0 04/26/2019 Financial Resource Strain Answer Date R ecorded Financial Resource Strain 0 2018 Stress Answer Date Recorded Stress 0 04/26/2019 Physical Activity Answer Date Recorded Physical Activity 0 04/26/2019 Food Insecurity Answer Date Recorded Food 0 04/26/2019 Transportation Needs Answer Date Record ed Transportation 0 04/26/2019 Housing Stability Answer Date Recorded Housing 0 04/26/2019 Safety and Environment Answer Date Adi rded Safety 0 04/26/2019 Utilities Answer Date Recorded Utilities 0 04/26/2019 Employment Answer Date Recorded Employment 0 04/26/2019 Comments No Sex and Gender Information Value Date Recorded Sex Assigned at Not on file Legal Sex Female 11:36 AM PDT Gender Identity Not on file Sexual Orientation Not on file Last Filed Vital Signs Vital Sign Reading Time Taken Comments Blood Pressure 119/79 10/19/2016 9:17 AM EST Pulse 99 10/19/2016 9:17 AM EST Temperature 36.8 ??C (98.3 ??F) 10/19/2016 9:17 AM ES T Respiratory Rate 18 10/19/2016 9:17 AM EST Oxygen Saturation 100% 10/19/2016 9:17 AM EST Inhaled Oxygen Concentration - - Weight 56.2 kg (124 lb) 04/17/2016 3:42 PM EDT Height 165.1 cm (5' 5 ) 04/03/2016 3:09 PM EDT Body Mass Index 20.63 04/03/2016 3:09 PM EDT Plan of Treatment Not on file Insurance [facility] PLAN Member Subscriber Plan / Payer (Ef fective 2013-Present) Name:Darya Romero Relation to Subscriber:Self Name:Darya Romero Payer ID:[id number] Group ID:[id number] Type:Medicaid Address: [facility] [address] [place] [address] Care Teams Director Medical Relationship Specialty Start Date End Date Catrachita Sarmiento PA-C [address] [place] [address] PCP - General 10/29/18
--- NOTE | 2025-01-14 07:32 | A.OFFVIS_ITS ---
Vital Signs 01/14/25 07:34 Height 5 ft 4 in Weight 146 lb BMI 25.1 BP 114/66 Intake Visit Reasons: Infertility consult Intake Note: Here for infertility consult ,she has one child [employer] Disposal [employer] Operator Required: No Information Interpreted: non-clinical & clinical Accompanied by: Significant Other Allergies No Known Allergies Allergy (Verified 01/14/25 07:36) Is last menstrual period known: Yes HPI Comments Details: The patient is presenting c/o inability to conceive over the last year in spite of frequent adequate intercourse. Her periods are regular and non-painful, no other complaints. Last ultrasound in 06/26 showed 2 myomas PFSH Medical History History of vitamin D deficiency Pelvic pain in female Acne vulgaris Surgical History Hx of section Family History Father Hx of diabetes mellitus Sister Diabetes mellitus Hypothyroidism Paternal Aunt Cancer Other No family history of breast cancer Social History Household Members: Children Housing: House Are you a primary medicare interviewer to a significant other at home: No Do you presently have visiting nurse or other home services: No Alcohol intake: current Alcohol intake frequency: holidays/special occasions only Patient Tobacco Use Status: Never used Tobacco e-Cigarette/Vaping Use: Never Used service: No Current occupational status: employed Sexual orientation: Straight/Heterosexual Gender identity: Female Cognitive needs: No Hearing needs: No Vision needs: No Female Reproductive History Menstrual Age of Menarche: 10 Review of Systems Const All systems reviewed & are unremarkable except as noted in HPI and below Reports as per HPI and Reports no additional complaints GI Reports no additional complaints Reports no additional complaints Physical Exam Vital Signs: Last Vital Signs BP 114/66 01/14/25 07:34 BMI result Body Mass Index 25.1 Assessment & Plan Assessment & Plan (1) Infertility, female: Code(s): N97.9 - Female infertility, unspecified Category: Medical Plan: Discussed with the patient possible cause of infertility including uterine myoma, female and male factor and ovulation adhesions and others will order semen analysis, prescription given to the partner. Instructions given the patient to documented ovulation and timed intercourse with [id number] ovulation predictor tests with the coming 3 months and we will schedule day 8 hysterosalpingogram in addition to pelvic ultrasound to follow up on the fibroid size and location and to schedule a follow-up appointment within 3 months. All questions answered, the patient verbalized understanding and agreed with the plan (2) Uterine myoma: Code(s): D25.9 - Leiomyoma of uterus, unspecified Category: Medical Plan: Instructions given the patient is schedule an ultrasound in three-month follow- up appointment. Orders: Orders US pelvic and transvaginal Today D25.9 - Leiomyoma of uterus, unspecified Coding Level of Care Code Est Pt Level 3 (56640) Diagnoses Infertility, female N97.9 Uterine myoma D25.9
[2025-01-14 07:34] VITALS: BP 114/66; BMI 25.1
== END 2025-01-14 08:34 | disposition home or self-care (01) ==
PROVIDERS: PCP Internal Medicine; Visit Provider Obstetrics & Gynecology
DX: N97.9 Female infertility, unspecified (principal); D25.9 Leiomyoma of uterus, unspecified
CPT/HCPCS: 99213

== ENCOUNTER → 2025-01-14 07:17 | Outpatient (BNVA) | payer OTHER, SELFPAY | PROVIDERS: PCP Internal Medicine; Visit Provider Obstetrics & Gynecology ==

== ENCOUNTER 2025-04-07 10:28 | Outpatient (AMB) | payer OTHER, SELFPAY ==
--- NOTE | 2025-04-07 10:36 | MHC.OFFVIS ---
Intake Visit Reasons: Hysterosalpingogram Allergies No Known Allergies Allergy (Verified 01/14/25 07:36) HPI Comments Details: Presenting for hysterosalpingogram [facility] Medical History History of vitamin D deficiency Pelvic pain in female Acne vulgaris Surgical History Hx of section Family History Father Hx of diabetes mellitus Sister Diabetes mellitus Hypothyroidism Paternal Aunt Cancer Other No family history of breast cancer Social History Household Members: Children Housing: House Are you a primary care manager cna to a significant other at home: No Do you presently have visiting nurse or other home services: No Alcohol intake: current Alcohol intake frequency: holidays/special occasions only Patient Tobacco Use Status: Never used Tobacco e-Cigarette/Vaping Use: Never Used service: No Current occupational status: employed Sexual orientation: Straight/Heterosexual Gender identity: Female Cognitive needs: No Hearing needs: No Vision needs: No Female Reproductive History Menstrual Age of Menarche: 10 Office Procedures Hysterosalpingography Hysterosalpingography Details: Urine test done in the office was negative. Time-out for HSG procedure was done. Speculum was placed in patient's vagina, vagina and cervix were prepped with betadine. A tenaculum was applied to the cervix. A primed 5 [place] HSG catheter was introduced into the cervix and balloon inflated. Speculum was removed. Contrast was injected under flouroscopy revealing a normal cavity and bilateral fill and spill. All instruments were removed from vagina and aftercare instructions were given. Instructions given to patient to call in case of fever above 100.4 severe abdominal/ pain, nausea and/or vomiting, heavy vaginal bleeding. This note was generated with a voice recognition program. Some errors may have been overlooked during the review of this note. Sometimes these errors may affect the content or meaning of a given sentence. HSG CPT code: 75388-[id number] Results AMB Test Urine AMB Test Urine Negative Last Edit by Mary Medley CMA on 04/07/25 10:46 Results Reviewed Results Reviewed: Laboratory Last Values [facility] Negative 04/07/25 10:45 Assessment & Plan Assessment & Plan (1) Infertility, female: Code(s): N97.9 - Female infertility, unspecified Category: Medical Plan: Hysterosalpingogram done, see procedure note Orders: Orders AMB HCG Urine Test Today Z32.02 - Encounter for test, result negative Coding Level of Care Code Procedure Only Diagnoses Infertility, female N97.9 CPT Codes Hysterosalpingography - HSG CPT code: 68497-[id number] ([id number])
== END 2025-04-07 11:56 | disposition home or self-care (01) ==
LOC: HO.HWS 10:28
PROVIDERS: PCP Internal Medicine; Visit Provider Obstetrics & Gynecology
DX: N97.9 Female infertility, unspecified (principal); Z32.02 Encounter for pregnancy test, result negative
CPT/HCPCS: 58340

== ENCOUNTER 2025-04-07 10:49 | Outpatient (REF) | payer OTHER, SELFPAY ==
--- NOTE | ~2025-04-07 | FL_ITS ---
EXAMINATION: INJECTION FOR HYSTEROSALPINGOGRAM CLINICAL INFORMATION: N97.9 - Female infertility, unspecified COMPARISON: None available. TECHNIQUE: The uterus was sterilely cannulated with a balloon tip catheter by Dr. Galvan. Under fluoroscopic guidance, gentle injection of sterile iodinated contrast into the endocervical canal was performed. FINDINGS: The endometrial canal has a normal appearance. There are no adhesions or contour abnormalities. Both fallopian tubes opacify promptly, and spill into the peritoneum normally. There is bilateral tubal patency demonstrated. FLUOROSCOPY TIME: 57 seconds DOSE AREA PRODUCT: 517.5 uGy-m2 (microgray-meter squared) FL/FL hysterosalpingography IMPRESSION: 1. Normal hysterosalpingogram. Bilateral tubal patency demonstrated. Electronically signed by: Montana Coker MD 04/07/2025 12:34 PM EDT
--- OUTSIDE RECORDS SUMMARY | 2025-04-07 11:32 | XMS_ITS | Clinical Summary ---
Author Organization [facility] Address [address] [place] [address] Care Team Providers Care Special Day Class Teacher Name Role Phone Catrachita Sarmiento PA-C Primary Care Provider [phone] Source Comments PLEASE NOTE, if this patient [...] ACCUTANE MUST HAVE CONTROL followed by dev- [phone] F/u Dermatology Dr. Felipe in [place]. Pap smear for cervical cancer screening 09/16/19 [...] Administration Dates Next Due Hep B, Adult/Adol ([id number]-D-NNOPH/RECOMBIVAX-AD ULT) 12/18/2015 History Of Varicella 12/18/2015 INFLUENZA, SEASONAL, INJECTABLE [...] 99 10/19/2016 9:17 AM EST Temperature 36.8 C (98.3 F) 10/19/2016 9:17 AM EST Respiratory Rate 18 10/19/2016 9:17 AM EST [...] Subscriber Plan / Payer (Ef fective 2013-Present) Name:Christofer Romeroalinaednamelissa Relation to Subscriber:Self Name:Christofer Romeroalinakaterin Payer ID:[id number] Group ID:[id number] Type:Medicaid Address: [facility] [address] [place] [address] Care Teams Special Day Class Teacher Relationship Specialty Start Date End Date Catrachita Sarmiento PA-C [address] [place] [address] PCP - General 10/29/18
[2025-04-07] MEDS: iohexoL 300 MG/ML 50 ML INFUS..BTL 20 ML INTRAUTERI (12:08)
== END 2025-04-07 10:50 | disposition home or self-care (01) ==
LOC: HO.XRAY 10:49
PROVIDERS: PCP Internal Medicine; Visit Provider Obstetrics & Gynecology
DX: N97.9 Female infertility, unspecified (principal); Z32.02 Encounter for pregnancy test, result negative
CPT/HCPCS: 58340; 74740; 81025; Q9967

== ENCOUNTER → 2025-04-07 10:52 | Outpatient (BNV) | payer OTHER, SELFPAY | PROVIDERS: PCP Internal Medicine; Visit Provider Radiology Diagnostic Radiology | DX: N97.9 Female infertility, unspecified (principal) | CPT/HCPCS: 74740 ==